=== PATIENT | female | born 1945 | race Caucasian/White ===

== ENCOUNTER → 2017-01-15 | Outpatient (CLI) | payer MEDICARE ==
[~2017-01-15] MED LIST: /TIOT18INH INH; ADVAIR; ALBUTEROL INH; ASPI325T OR; COLA100C2 OR; EFFE150C OR; FLECTOR1.3 TOP; FLEXERIL OR; LISI20TA5 OR; PERC5TAB8 OR; amrix; nucynta OR
--- NOTE | 2017-01-15 16:48 | REP ---
CT CHEST WITHOUT CONTRAST: REASON FOR EXAM: History of lung cancer. COMPARISON EXAM: Multiple, all of which have been reviewed and the latest of which is dated 12/27/2015. The exam was performed without intravenous contrast which decreases the sensitivity of the exam. There is no significant change in the appearance of the mediastinum of pulmonary yg. There are no pleural or pericardiac effusions. There is no significant change in the appearance of the imaged upper abdomen or imaged osseous structures. There are chronic rib changes status quo. Evaluation of the lung jacobs again show lung field hyperexpansion with parenchymal bulla and pleural blebs status quo. Curvilinear and asymmetric density again seen scattered throughout the lung jacobs with right hemithoracic predominance consistent with post-operative and post radiation change. In the posterior basal segment of the left lower lobe there is a new 6 mm size nodule. Just inferior to this there is a new smaller 4 mm sized nodule. Also in the left lower lobe superior to the aforementioned there is a new 3 mm sized nodule. In the anterobasal segment of the left lower lobe there is a new 2 mm sized nodule. In the lingula there are 3 new nodules, two measuring 4 mm and one smaller. In the right lower lobe there are multiple new pleural based nodules, the largest of which measures 4 mm. IMPRESSION:1. Multiple new pulmonary nodules as described above. According to the revised Fleischner's Society criteria, these nodules represent category 3 lesions and a 6 month followup is recommended. 2. Chronic parenchymal changes with postradiation and postoperative change along with chronic emphysematous changes. 3. Other findings as described above. Signed by Adriano Navarro DO 01/16/2017 04:11 P
== END ==
LOC: M RAD 14:46
PROVIDERS: ATTEND Internal Medicine Hematology & Oncology
DX: C34.90 Malignant neoplasm of unspecified part of unspecified bronchus or lung (principal)

== ENCOUNTER → 2017-08-05 | Outpatient (CLI) | payer MEDICARE ==
--- NOTE | 2017-08-05 12:26 | REP ---
CT of the chest without IV contrast: Comparisons are 01/15/2017 and 12/27/2015. On 01/15/2017 there was a 6 mm nodule in the left lower lobe, pleural-based. This measures 5 mm today on image [id number]. On the comparison study. There is a left lower lobe 4 mm nodule. This nodule again measures 4 mm today and is unchanged. There are multiple other small left lung nodules, all 3 mm in size or less also all unchanged. I note that the the patient has 11 paired ribs. There is a barely visible hypoplastic right 12th rib. There is no left 12th rib. There is an old healed fracture of the posterior arch of the left eighth rib. There is grade 4 compression deformity of the T7 vertebral body without retropulsed fragments. This is unchanged. There are no acute infiltrates or effusions. There is no mediastinal or axillary adenopathy. The study is insensitive for hilar adenopathy in the absence of IV contrast. The unenhanced thoracic aorta is unremarkable. Cardiac size is normal. There is no pericardial effusion. In the visualized upper abdomen there is no adrenal mass. Impression: Multiple small left lung nodules without interval change. Grade 4 compression deformity of the T7 vertebral body, unchanged. Old healed fracture of the T8 vertebra posteriorly, unchanged. There are 11 paired ribs. There is a markedly hypoplastic right 12th rib. No visible left 12th rib. Signed by Jan López MD 08/05/2017 12:18 P
== END ==
LOC: M RAD 10:49
PROVIDERS: ATTEND Internal Medicine Hematology & Oncology
DX: C34.90 Malignant neoplasm of unspecified part of unspecified bronchus or lung (principal)

== ENCOUNTER → 2018-02-10 | Outpatient (CLI) | payer MEDICARE | LOC: M RAD 12:19 | DX: C34.91 Malignant neoplasm of unspecified part of right bronchus or lung (principal) | CPT/HCPCS: 71250 ==

== ENCOUNTER → 2019-02-04 | Outpatient (CLI) | payer MEDICARE ==
[~2019-02-04] MED LIST changes: -/TIOT18INH INH; +SPIR1CAP INH
--- NOTE | 2019-02-04 14:10 | REP ---
REASON: Adenocarcinoma of the lung. All priors were reviewed, the latest of which is dated 02/10/2018. Lack of intravenous contrast decreases the sensitivity of the exam. Postop change is seen in the right hilum status quo. No mediastinal or hilar adenopathy is has developed. There are no pleural or pericardial effusions. There is no change in the appearance of the imaged upper abdomen. Evaluation of the imaged osseous structures show multiple chronic rib changes, however, since the last examination, multiple age-indeterminate by seemingly subacute or old left-sided rib fractures have developed. Evaluation of the lung jacobs show scattered subcentimeter-sized nodular densities throughout the left lung status quo. Chronic change is seen throughout the lung jacobs with lung field hyperexpansion and bullous emphysematous change status quo. No new abnormal nodules, masses, or opacities have developed. IMPRESSION: 1. Left-sided rib fractures as described above. 2. No new lung findings with chronic changes and postoperative changes as described above. Electronically Signed by Adriano Navarro DO 02/04/2019 04:14 P
== END ==
LOC: M RAD 11:58
PROVIDERS: ATTEND Internal Medicine Hematology & Oncology
DX: C34.91 Malignant neoplasm of unspecified part of right bronchus or lung (principal)

== ENCOUNTER 2019-03-04 07:42 | Day surgery (SDC) | payer MEDICARE ==
[~2019-03-04] VITALS: Ht 149.9 cm; Wt 49.9 kg
[~2019-03-04 07:42] MED LIST changes: +ALBU8.5H; +ANOR1AER INH; +ARNU1INH INH; +ASPI81TA26 PO; +BSS with VANC/TOB/EPI for EYE CASES IR ONE; +COLA100C5 PO; +CYCLOPENTOLATE 2% OPHTH SOLN 2ML BTL OS ONE; +FELO10TA PO; +GABA-1171 PO; +HEALON DUET PRO(HEALON 10MG/ML 0.55ML & HEALON ENDOCOAT 30MG/ML 0.85ML) As Ordered ONE; +HYDR-3911 PO; +IPRA0.00; +LIDOCAINE 1% SDV 5 ML VIAL As Ordered ONE; +LIDOCAINE 3.5 % 1ML OPHTH TOPICAL GEL OU ONE; +MELA3TAB41 PO; +MIDAZOLAM INJ 2 MG/2 ML VIAL (J2250) As Ordered ONE; +MOXIFLOXACIN IN BSS 0.25MG/0.25ML INTRACAMERAL INJ (OR EYE ONLY)(J2280) As Ordered ONE; +NUCY75TA11 PO; +OFLOXACIN 0.3 % (OCUFLOX) OPTH SOL 5ML OS ONE; +PHENYLEPHRINE 2.5% OPHTH SOL 2ML OS ONE; +PHENYLEPHRINE HCL 10 % OPHTH. SOL 5ML OS PRN; +POVIDONE-IODINE 5% OPHTH PREP SOL 30ML As Ordered ONE; +PRED10PA2 PO; +RANI150T14 PO; +SOMA350T PO; +TRIAMCINOLONE PRES FR 40 MG/ML 1ML(TRIESENCE)(OR EYE ONLY)(J3300 PER 1MG) As Ordered ONE; +TROPICAMIDE 1% OPHTH SOLN 2ML OS ONE; +VITA500045 PO; +fentaNYL 100 MCG/2 ML INJECTION (J3010) As Ordered ONE
[2019-03-04] MEDS ORDERED: ONDANSETRON 4MG/2ML VIAL (J2405) IV PRN (10:30)
[2019-03-04] MEDS ORDERED: ACETAMINOPHEN TAB 650MG DOSE (2X325MG) PO PRN (10:30)
[2019-03-04 10:40] VITALS: BP 130/75
== END 2019-03-04 10:48 | disposition home or self-care (01) ==
LOC: M SDC 07:42
PROVIDERS: ATTEND Ophthalmology
DX: H25.9 Unspecified age-related cataract (principal); I10 Essential (primary) hypertension; E03.9 Hypothyroidism, unspecified; K21.9 Gastro-esophageal reflux disease without esophagitis; K44.9 Diaphragmatic hernia without obstruction or gangrene; J44.9 Chronic obstructive pulmonary disease, unspecified; Z79.899 Other long term (current) drug therapy; Z79.51 Long term (current) use of inhaled steroids; Z79.52 Long term (current) use of systemic steroids; Z79.82 Long term (current) use of aspirin; G47.30 Sleep apnea, unspecified; Z92.21 Personal history of antineoplastic chemotherapy; F32.9 Major depressive disorder, single episode, unspecified; F41.9 Anxiety disorder, unspecified; Z88.2 Allergy status to sulfonamides; Z91.041 Radiographic dye allergy status
CPT/HCPCS: 66984; 67515; 92015; J2250; J2280; J3010; J3300; V2788

== ENCOUNTER → 2019-04-29 | Outpatient (CLI) | payer MEDICARE ==
[~2019-04-29] MED LIST changes: -BSS with VANC/TOB/EPI for EYE CASES IR ONE; -CYCLOPENTOLATE 2% OPHTH SOLN 2ML BTL OS ONE; -HEALON DUET PRO(HEALON 10MG/ML 0.55ML & HEALON ENDOCOAT 30MG/ML 0.85ML) As Ordered ONE; -LIDOCAINE 1% SDV 5 ML VIAL As Ordered ONE; -LIDOCAINE 3.5 % 1ML OPHTH TOPICAL GEL OU ONE; -MIDAZOLAM INJ 2 MG/2 ML VIAL (J2250) As Ordered ONE; -MOXIFLOXACIN IN BSS 0.25MG/0.25ML INTRACAMERAL INJ (OR EYE ONLY)(J2280) As Ordered ONE; -OFLOXACIN 0.3 % (OCUFLOX) OPTH SOL 5ML OS ONE; -PHENYLEPHRINE 2.5% OPHTH SOL 2ML OS ONE; -PHENYLEPHRINE HCL 10 % OPHTH. SOL 5ML OS PRN; -POVIDONE-IODINE 5% OPHTH PREP SOL 30ML As Ordered ONE; -TRIAMCINOLONE PRES FR 40 MG/ML 1ML(TRIESENCE)(OR EYE ONLY)(J3300 PER 1MG) As Ordered ONE; -TROPICAMIDE 1% OPHTH SOLN 2ML OS ONE; -fentaNYL 100 MCG/2 ML INJECTION (J3010) As Ordered ONE
--- NOTE | 2019-04-29 16:07 | REP ---
HISTORY: Pain and swelling. History of a mass. COMPARISON: None. There are old healed rib fractures on the left. There is moderate degenerative changes seen involving the acromioclavicular joint. The glenohumeral relationship is within normal limits. IMPRESSION: Chronic changes as described above. If a soft tissue mass is of clinical concern, then an MRI would be in order. Electronically Signed by Adriano Navarro DO 04/29/2019 04:22 P
== END ==
LOC: M RAD 13:33
PROVIDERS: ATTEND Surgery
DX: R22.2 Localized swelling, mass and lump, trunk (principal)

== ENCOUNTER → 2019-05-23 | Outpatient (CLI) | payer MEDICARE ==
[2019-05-23 13:26] LABS: CREATININE FOR GFR 1.13 MG/DL (0.55-1.30); GLOMERULAR FILTRATION RATE 50.5 (>39)
== END ==
LOC: M LAB 12:34
PROVIDERS: ATTEND Surgery
DX: R22.2 Localized swelling, mass and lump, trunk (principal)

== ENCOUNTER → 2019-05-27 | Outpatient (CLI) | payer MEDICARE ==
[~2019-05-27] MED LIST changes: +PROHANCE 279.3MG/ML 5ML VIAL (A9576) As Ordered ONE
--- NOTE | 2019-05-27 15:10 | REP ---
MRI LEFT CHEST WALL WITH AND WITHOUT CONTRAST: TECHNIQUE: Multiple sequences obtained at the site of the reported palpable abnormality at the posterior aspect of the left chest wall in the axial, coronal, and sagittal planes prior to and following the intravenous administration of 5 mL ProHance. The palpable area is marked on the skin. At the site of the reported palpable abnormality there are underlying rib fractures as seen on prior CT of the chest 02/04/2019. Two mildly displaced rib fractures are seen adjacent to one another at the site of the reported palpable abnormality, specifically the posterior left 6th rib and left 7th rib. At both of these fracture sites there is mild high signal edema along the margins of the fractures as well as a small band of fluid in the adjacent left chest wall. This indicates incomplete healing. No suspicious enhancing mass is seen in the chest wall soft tissues. Severe compression fracture is again noted of T7 unchanged since the prior CT scan. IMPRESSION: At the site of the reported palpable abnormality posterior left chest wall there are underlying rib fractures as seen on CT of the chest 02/04/2019. Two mildly displaced rib fractures are seen posteriorly, specifically, the left 6th and 7th ribs. Both of these fractures demonstrate edema at the margins of the fracture with a band of fluid in the immediately adjacent chest wall. Only a mild amount of fluid is present having a thickness of about 6 mm. There is no enhancing soft tissue mass in this region. Unreviewed
== END ==
LOC: M RAD 08:59
PROVIDERS: ATTEND Surgery
DX: R22.2 Localized swelling, mass and lump, trunk (principal); S22.42XA Multiple fractures of ribs, left side, initial encounter for closed fracture; X58.XXXA Exposure to other specified factors, initial encounter; Y92.9 Unspecified place or not applicable
CPT/HCPCS: 73222; A9576

== ENCOUNTER → 2020-01-27 | Outpatient (CLI) | payer MEDICARE ==
[~2020-01-27] MED LIST changes: -FELO10TA PO; +FELO10TA28 PO; -MELA3TAB41 PO; +MELA3TAB62 PO; -PROHANCE 279.3MG/ML 5ML VIAL (A9576) As Ordered ONE
--- NOTE | 2020-01-27 14:31 | REP ---
CT CHEST WITHOUT IV CONTRAST: CT chest performed without IV contrast and compared to a prior study of 02/04/2019. Sagittal and coronal reconstruction images are performed. Mediastinal and right paramediastinal fibrotic change and posterior pleural thickening is all stable. No new mass is visualized. A few scattered tiny calcified granulomas and other nodular opacities in the left lung are all stable. There are emphysematous and fibrotic changes diffusely bilaterally in the lungs. No axillary adenopathy is seen. No new mediastinal mass is seen. There are multiple metallic clips in the right hilar region. There are atherosclerotic calcifications of the thoracic aorta without aneurysm. The heart is not enlarged. There is no pleural or pericardial effusion. There are diffuse degenerative changes of the spine. There is a severe compression deformity again noted of a mid thoracic vertebral body, which is stable. There are old bilateral rib fractures. IMPRESSION: Stable fibrotic and postsurgical changes with no new mass and no change since the prior study of 02/04/2019. Electronically Signed by Jan Martin MD 01/27/2020 04:23 P
== END ==
LOC: M RAD 12:38
PROVIDERS: ATTEND Internal Medicine Hematology & Oncology
DX: Z85.118 Personal history of other malignant neoplasm of bronchus and lung (principal)

== ENCOUNTER → 2022-04-05 | Outpatient (CLI) | payer OTHER ==
[~2022-04-05] MED LIST changes: +MELA3TAB30 PO; -MELA3TAB62 PO
== END ==
LOC: M RAD 12:57
PROVIDERS: ATTEND Internal Medicine Hematology & Oncology
DX: C34.90 Malignant neoplasm of unspecified part of unspecified bronchus or lung (principal)

== ENCOUNTER 2023-05-11 20:58 | Inpatient (IN) | payer MEDICARE, OTHER ==
[~2023-05-11] VITALS: Ht 149.9 cm; Wt 53.9 kg
[2023-05-11 23:33] LABS: BASO # 0.1 10^3/uL (0.0-0.2); BASO % 0.5 % (0.0-1.0); EOS % 0.1 % (0.0-3.0); HEMATOCRIT 35.8 % (36.0-47.0); LYMPH # 0.4 10^3/uL (1.5-5.0); LYMPH % 3.3 % (24.0-44.0); MEAN CORPUSCULAR HEMOGLOBIN 28.4 pg (27.0-33.0); MEAN CORPUSCULAR HGB CONC 30.7 g/dl (32.0-36.5); MEAN CORPUSCULAR VOLUME 92.3 fl (80.0-96.0); MONO # 1.3 10^3/uL (0.0-0.8); MONO % 9.7 % (2.0-8.0); NEUTROPHILS # 11.3 10^3/uL (1.5-8.5); NEUTROPHILS % 85.6 % (36.0-66.0); PLATELET COUNT, AUTOMATED 278 10^3/uL (150-450); RED BLOOD COUNT 3.88 10^6/uL (4.00-5.40); WHITE BLOOD COUNT 13.2 10^3/uL (4.0-10.0)
[2023-05-11 23:57] LABS: CALCIUM LEVEL 8.6 MG/DL (8.3-10.6); CREATININE FOR GFR 1.14 MG/DL (0.55-1.30); GLOMERULAR FILTRATION RATE 49.5 (>39); POTASSIUM SERUM 4.2 MMOL/L (3.5-5.1)
[2023-05-12] VITALS (19 sets, daily range): BP systolic 94–112; BP diastolic 58–71; TEMP 96.6–99.9; O2SAT 85–99
[2023-05-12 00:04] LABS: RSV AMPLIFICATION NEGATIVE (NEGATIVE)
[2023-05-12] MEDS ORDERED: ACETAMINOPHEN 1000MG 100ML IV BAG IV ONE (00:50)
[2023-05-12] MEDS ORDERED: KETOROLAC 30 MG/ML 1ML VIAL IV ONE (01:00)
[2023-05-12] MEDS ORDERED: MORPHINE 4 MG/ML 1ML VIAL IV PRN (01:55)
[2023-05-12] MEDS ORDERED: ACETAMINOPHEN TAB 650MG DOSE (2X325MG) PO PRN (01:55)
[2023-05-12] MEDS: LR 1,000 ML IV SCH ×2 (02:09→16:05)
[2023-05-12] MEDS ORDERED: MED REC CURRENTLY UNOBTAINABLE XX SCH (02:25)
[2023-05-12] MEDS: IPRATROPIUM 0.5MG/ALBUTEROL 2.5MG INH SOL UD 3ML (DUONEB) NEB SCH ×5 (03:38→23:40)
[2023-05-12 06:50] LABS: INR 1.01; PROTHROMBIN TIME 13.5 SECONDS (12.5-14.5)
[2023-05-12 06:51] LABS: PARTIAL THROMBOPLASTIN TIME 33.7 SECONDS (24.8-34.2)
[2023-05-12] MEDS ORDERED: KETOROLAC 30 MG/ML 1ML VIAL IV SCH (08:00)
[2023-05-12 08:24] LABS: BASO # 0.1 10^3/uL (0.0-0.2); BASO % 0.6 % (0.0-1.0); EOS % 0.3 % (0.0-3.0); HEMATOCRIT 35.3 % (36.0-47.0); HEMOGLOBIN 10.8 g/dl (12.0-15.5); LYMPH # 0.7 10^3/uL (1.5-5.0); LYMPH % 6.8 % (24.0-44.0); MEAN CORPUSCULAR HEMOGLOBIN 28.1 pg (27.0-33.0); MEAN CORPUSCULAR HGB CONC 30.6 g/dl (32.0-36.5); MEAN CORPUSCULAR VOLUME 91.9 fl (80.0-96.0); MONO # 1.5 10^3/uL (0.0-0.8); MONO % 13.2 % (2.0-8.0); NEUTROPHILS # 8.6 10^3/uL (1.5-8.5); NEUTROPHILS % 78.7 % (36.0-66.0); PLATELET COUNT, AUTOMATED 268 10^3/uL (150-450); RED BLOOD COUNT 3.84 10^6/uL (4.00-5.40)
[2023-05-12 08:29] LABS: CALCIUM LEVEL 8.4 MG/DL (8.3-10.6); CREATININE FOR GFR 1.28 MG/DL (0.55-1.30); GLOMERULAR FILTRATION RATE 43.3 (>39); POTASSIUM SERUM 4.3 MMOL/L (3.5-5.1)
[2023-05-12] MEDS ORDERED: methylPREDNISolone 125MG 2ML VIAL IV ONE (08:30)
[2023-05-12] MEDS: MORPHINE 2 MG/ML 1ML VIAL IV PRN ×3 (08:51→21:32)
[2023-05-12] MEDS: AZITHROMYCIN 250MG TABLET PO SCH ×2 (08:51→13:24)
[2023-05-12] MEDS: amLODIPine 5 MG TAB PO SCH (09:00)
[2023-05-12] MEDS ORDERED: ZOLO100T PO (12:10)
[2023-05-12] MEDS ORDERED: LISI20TA33 PO (12:10)
[2023-05-12] MEDS ORDERED: SIMV20TA22 PO (12:10)
[2023-05-12] MEDS ORDERED: HYDR100T PO (12:10)
[2023-05-12] MEDS ORDERED: LEVO150T7 PO (12:10)
[2023-05-12] MEDS ORDERED: PANT40TA29 PO (12:10)
[2023-05-12] MEDS ORDERED: ERGO500029 PO (12:12)
[2023-05-12] MEDS ORDERED: HOME MED LIST COMPLETE! XX SCH (12:15)
[2023-05-12] MEDS: SERTRALINE 100 MG TAB PO SCH (13:24)
[2023-05-12] MEDS: LEVOTHYROXINE 150MCG TABLET (0.15MG) PO SCH (13:24)
[2023-05-12] MEDS: ASPIRIN 81MG ENTERIC TABLET PO SCH (13:25)
[2023-05-12] MEDS: PANTOPRAZOLE 40MG TAB (PROTONIX) PO SCH (13:25)
[2023-05-12] MEDS: PERCOCET 5MG/325MG TAB PO PRN (13:25)
[2023-05-12] MEDS: DOCUSATE SODIUM 100MG CAPSULE PO PRN (13:25)
[2023-05-12] MEDS: CALCIUM CARBONATE 500 MG CHEW U/D PO PRN (16:10)
[2023-05-12] MEDS: SYMBICORT 80/4.5MCG INHALER 6GM INH SCH (20:01)
[2023-05-12] MEDS: SIMVASTATIN 20 MG TAB PO SCH (21:31)
[2023-05-13] VITALS (13 sets, daily range): BP systolic 92–151; BP diastolic 56–83; TEMP 97.1–97.8; O2SAT 90–99
[2023-05-13] MEDS: MORPHINE 2 MG/ML 1ML VIAL IV PRN ×5 (01:30→21:44)
[2023-05-13] MEDS: IPRATROPIUM 0.5MG/ALBUTEROL 2.5MG INH SOL UD 3ML (DUONEB) NEB SCH ×4 (03:15→17:27)
[2023-05-13] MEDS: PERCOCET 5MG/325MG TAB PO PRN ×4 (03:51→23:55)
[2023-05-13 04:54] LABS: HEMATOCRIT 33.1 % (36.0-47.0); HEMOGLOBIN 10.1 g/dl (12.0-15.5); MEAN CORPUSCULAR HEMOGLOBIN 27.9 pg (27.0-33.0); MEAN CORPUSCULAR HGB CONC 30.5 g/dl (32.0-36.5); MEAN CORPUSCULAR VOLUME 91.4 fl (80.0-96.0); PLATELET COUNT, AUTOMATED 217 10^3/uL (150-450); RED BLOOD COUNT 3.62 10^6/uL (4.00-5.40); WHITE BLOOD COUNT 16.9 10^3/uL (4.0-10.0)
[2023-05-13] MEDS: LEVOTHYROXINE 150MCG TABLET (0.15MG) PO SCH (05:36)
[2023-05-13] MEDS: LR 1,000 ML IV SCH (06:48)
[2023-05-13 06:50] LABS: CREATININE FOR GFR 1.13 MG/DL (0.55-1.30); MAGNESIUM LEVEL 2.1 MG/DL (1.8-2.4); POTASSIUM SERUM 4.4 MMOL/L (3.5-5.1)
[2023-05-13] MEDS: TIOTROPIUM INHALER/CAPSULE (SPIRIVA) INH SCH (07:17)
[2023-05-13] MEDS: SYMBICORT 80/4.5MCG INHALER 6GM INH SCH (07:18)
[2023-05-13] MEDS: methylPREDNISolone 40MG 1ML VIAL IV SCH ×2 (08:57→20:14)
[2023-05-13] MEDS: SERTRALINE 100 MG TAB PO SCH (08:57)
[2023-05-13] MEDS: PANTOPRAZOLE 40MG TAB (PROTONIX) PO SCH (08:58)
[2023-05-13] MEDS: amLODIPine 5 MG TAB PO SCH (08:58)
[2023-05-13] MEDS: ASPIRIN 81MG ENTERIC TABLET PO SCH (08:59)
[2023-05-13] MEDS ORDERED: CEPACOL LOZENGE PO PRN (09:20)
[2023-05-13] MEDS: guaiFENesin ER 600 MG TAB PO SCH ×2 (09:38→20:14)
[2023-05-13] MEDS ORDERED: propofoL 200 MG/20 ML VIAL As Ordered ONE (11:03)
[2023-05-13] MEDS ORDERED: LIDOCAINE 2% 100MG/5ML SDV (FOR ANES.) As Ordered ONE (11:03)
[2023-05-13] MEDS ORDERED: fentaNYL 100 MCG/2 ML INJECTION As Ordered ONE (11:04)
[2023-05-13] MEDS ORDERED: MIDAZOLAM INJ 2MG/2ML VIAL As Ordered ONE (11:04)
[2023-05-13] MEDS: MAG SULF 1GM/100ML (MAG RUN) 1 GM in IV 1 EA IV SCH ×2 (13:42→15:30)
[2023-05-13] MEDS: BUDESONIDE 0.25 MG/2 ML INHALATION SUSPENSION INH SCH ×2 (13:51→19:24)
[2023-05-13] MEDS ORDERED: methylPREDNISolone 40MG 1ML VIAL IV ONE (16:05)
[2023-05-13] MEDS ORDERED: diphenhydrAMINE 50MG/ML VIAL IV STA (16:05)
[2023-05-13] MEDS ORDERED: AZITHROMYCIN INJ 500 MG, VIAL MATE ADAPTER 1 EACH in NS 250 ML IV SCH (17:00)
[2023-05-13 17:46] LABS: ABG BASE EXCESS -1.3 (-2.0-2.0); ABG HCO3 24.1 MMOL/L (22.0-26.0); ABG O2 SATURATION 98.9 % (95.0-99.0); ABG PARTIAL PRESSURE CO2 43.5 mmHg (35.0-45.0); ABG PARTIAL PRESSURE O2 147.5 mmHg (75.0-100.0); ABG STANDARD HCO3 23.4 MMOL/L. (22.0-26.0); ABG TOTAL CO2 25.5 MMOL/L (23.0-31.0); ABG pH (ARTERIAL) 7.362 UNITS (7.350-7.450)
[2023-05-13] MEDS ORDERED: ISOVUE-370 76% 100ML VIAL As Ordered ONE (17:52)
[2023-05-13] MEDS: FORMOTEROL FUMARATE 20 MCG/2 ML INHALATION SOLUTION (PERFOROMIST) INH SCH (19:23)
[2023-05-13] MEDS: SIMVASTATIN 20 MG TAB PO SCH (20:14)
[2023-05-13] MEDS: cefTRIAXone SOD 1 GM in D5W MINI-BAG PLUS 50 ML IV SCH (20:15)
[2023-05-13] MEDS ORDERED: ENOXAPARIN 30MG/0.3ML SYRINGE (J1650 PER 10MG) SC ONE (21:00)
[2023-05-14] VITALS (32 sets, daily range): BP systolic 92–150; BP diastolic 59–85; TEMP 96.7–97.7; O2SAT 88–100
[2023-05-14] MEDS: IPRATROPIUM 0.5MG/ALBUTEROL 2.5MG INH SOL UD 3ML (DUONEB) NEB SCH ×4 (01:06→19:06)
[2023-05-14] MEDS: MORPHINE 2 MG/ML 1ML VIAL IV PRN ×4 (01:51→20:51)
[2023-05-14] MEDS: NICOTINE 21MG/24HR 1 EA TRANSDERMAL TD PRN (03:30)
[2023-05-14] MEDS: PERCOCET 5MG/325MG TAB PO PRN ×3 (04:43→17:52)
[2023-05-14] MEDS: LEVOTHYROXINE 150MCG TABLET (0.15MG) PO SCH (06:30)
[2023-05-14] MEDS: BUDESONIDE 0.25 MG/2 ML INHALATION SUSPENSION INH SCH (07:49)
[2023-05-14] MEDS: FORMOTEROL FUMARATE 20 MCG/2 ML INHALATION SOLUTION (PERFOROMIST) INH SCH (07:49)
[2023-05-14] MEDS: TIOTROPIUM INHALER/CAPSULE (SPIRIVA) INH SCH (07:49)
[2023-05-14] MEDS ORDERED: ONDANSETRON 4MG 2ML VIAL As Ordered ONE (09:48)
[2023-05-14] MEDS ORDERED: propofoL 200 MG/20 ML VIAL As Ordered ONE (09:48)
[2023-05-14] MEDS ORDERED: LIDOCAINE 2% 100MG/5ML SDV (FOR ANES.) As Ordered ONE (09:48)
[2023-05-14] MEDS: guaiFENesin ER 600 MG TAB PO SCH ×3 (09:52→20:47)
[2023-05-14] MEDS: methylPREDNISolone 40MG 1ML VIAL IV SCH ×3 (09:52→20:47)
[2023-05-14] MEDS: AZITHROMYCIN 250MG TABLET PO SCH (09:52)
[2023-05-14] MEDS: ASPIRIN 81MG ENTERIC TABLET PO SCH ×2 (09:52→10:00)
[2023-05-14] MEDS: SERTRALINE 100 MG TAB PO SCH ×2 (09:52→10:00)
[2023-05-14] MEDS: amLODIPine 5 MG TAB PO SCH ×2 (09:53→10:00)
[2023-05-14] MEDS: PANTOPRAZOLE 40MG TAB (PROTONIX) PO SCH ×2 (09:53→10:00)
[2023-05-14 09:59] LABS: BASO % 0.1 % (0.0-1.0); HEMATOCRIT 31.9 % (36.0-47.0); HEMOGLOBIN 9.7 g/dl (12.0-15.5); LYMPH # 0.2 10^3/uL (1.5-5.0); LYMPH % 1.4 % (24.0-44.0); MEAN CORPUSCULAR HGB CONC 30.4 g/dl (32.0-36.5); MEAN CORPUSCULAR VOLUME 91.9 fl (80.0-96.0); NEUTROPHILS # 15.8 10^3/uL (1.5-8.5); NEUTROPHILS % 91.7 % (36.0-66.0); PLATELET COUNT, AUTOMATED 243 10^3/uL (150-450); RED BLOOD COUNT 3.47 10^6/uL (4.00-5.40); WHITE BLOOD COUNT 17.2 10^3/uL (4.0-10.0)
[2023-05-14 10:25] LABS: BLOOD UREA NITROGEN 28 MG/DL (9-23); CALCIUM LEVEL 8.5 MG/DL (8.3-10.6); CARBON DIOXIDE LEVEL 27 MMOL/L (20-31); CHLORIDE LEVEL 104 MMOL/L (98-107); CREATININE FOR GFR 0.87 MG/DL (0.55-1.30); GLOMERULAR FILTRATION RATE > 60.0 (>39); GLUCOSE, FASTING 101 MG/DL (74-106); POTASSIUM SERUM 4.6 MMOL/L (3.5-5.1); SODIUM LEVEL 140 MMOL/L (136-145)
[2023-05-14] MEDS ORDERED: SUGAMMADEX SODIUM 500 MG/5 ML VIAL (BRIDION) As Ordered ONE (10:39)
[2023-05-14] MEDS ORDERED: ROCURONIUM BROMIDE 50MG/5ML VIAL As Ordered ONE (10:39)
[2023-05-14] MEDS ORDERED: fentaNYL 100 MCG/2 ML INJECTION As Ordered ONE (10:40)
[2023-05-14] MEDS ORDERED: methylPREDNISolone 40MG 1ML VIAL As Ordered ONE (11:20)
[2023-05-14] MEDS ORDERED: ceFAZolin 2 GM/D5W 50 ML IV BAG As Ordered ONE (11:27)
[2023-05-14] MEDS ORDERED: ACETAMINOPHEN 1000MG 100ML IV BAG As Ordered ONE (11:48)
[2023-05-14] MEDS: LEVALBUTEROL 1.25MG 0.5ML CONCENTRATE NEB INH PRN (13:20)
[2023-05-14] MEDS: cefTRIAXone SOD 1 GM in D5W MINI-BAG PLUS 50 ML IV SCH (17:50)
[2023-05-14] MEDS: IPRATROPIUM HFA INHALER 12.9 GRAMS (ATROVENT HFA) INH SCH (19:07)
[2023-05-14] MEDS: ADVAIR HFA 115/21MCG INHALER INH SCH (19:07)
[2023-05-14] MEDS: SIMVASTATIN 20 MG TAB PO SCH (20:46)
[2023-05-15] VITALS (26 sets, daily range): BP systolic 98–142; BP diastolic 54–96; TEMP 96.7–98.4; O2SAT 85–98
[2023-05-15] MEDS: IPRATROPIUM 0.5MG/ALBUTEROL 2.5MG INH SOL UD 3ML (DUONEB) NEB SCH ×5 (01:10→20:16)
[2023-05-15] MEDS: MORPHINE 2 MG/ML 1ML VIAL IV PRN ×4 (02:06→18:34)
[2023-05-15] MEDS: carisoprodoL 350 MG TAB PO PRN ×2 (03:25→20:37)
[2023-05-15] MEDS: CALCIUM CARBONATE 500 MG CHEW U/D PO PRN ×4 (03:25→21:46)
[2023-05-15] MEDS: NICOTINE 21MG/24HR 1 EA TRANSDERMAL TD PRN (03:32)
[2023-05-15] MEDS: PERCOCET 5MG/325MG TAB PO PRN ×4 (04:08→20:39)
[2023-05-15 05:42] LABS: BASO % 0.1 % (0.0-1.0); HEMATOCRIT 28.5 % (36.0-47.0); HEMOGLOBIN 8.7 g/dl (12.0-15.5); LYMPH # 0.2 10^3/uL (1.5-5.0); MEAN CORPUSCULAR HEMOGLOBIN 28.2 pg (27.0-33.0); MEAN CORPUSCULAR HGB CONC 30.5 g/dl (32.0-36.5); MEAN CORPUSCULAR VOLUME 92.2 fl (80.0-96.0); MONO # 0.7 10^3/uL (0.0-0.8); MONO % 7.1 % (2.0-8.0); NEUTROPHILS # 9.2 10^3/uL (1.5-8.5); NEUTROPHILS % 90.2 % (36.0-66.0); PLATELET COUNT, AUTOMATED 234 10^3/uL (150-450); RED BLOOD COUNT 3.09 10^6/uL (4.00-5.40); WHITE BLOOD COUNT 10.2 10^3/uL (4.0-10.0)
[2023-05-15 06:07] LABS: BLOOD UREA NITROGEN 30 MG/DL (9-23); CALCIUM LEVEL 8.1 MG/DL (8.3-10.6); CARBON DIOXIDE LEVEL 28 MMOL/L (20-31); CHLORIDE LEVEL 106 MMOL/L (98-107); CREATININE FOR GFR 0.82 MG/DL (0.55-1.30); GLOMERULAR FILTRATION RATE > 60.0 (>39); GLUCOSE, FASTING 124 MG/DL (74-106); SODIUM LEVEL 142 MMOL/L (136-145)
[2023-05-15] MEDS: LEVOTHYROXINE 150MCG TABLET (0.15MG) PO SCH (06:26)
[2023-05-15] MEDS: IPRATROPIUM HFA INHALER 12.9 GRAMS (ATROVENT HFA) INH SCH ×2 (07:10→20:16)
[2023-05-15] MEDS: ADVAIR HFA 115/21MCG INHALER INH SCH ×2 (07:10→20:16)
[2023-05-15] MEDS: amLODIPine 5 MG TAB PO SCH (09:00)
[2023-05-15] MEDS: SERTRALINE 100 MG TAB PO SCH (09:43)
[2023-05-15] MEDS: guaiFENesin ER 600 MG TAB PO SCH ×2 (09:43→20:37)
[2023-05-15] MEDS: PANTOPRAZOLE 40MG TAB (PROTONIX) PO SCH (09:43)
[2023-05-15] MEDS: ASPIRIN 81MG ENTERIC TABLET PO SCH (09:43)
[2023-05-15] MEDS: ENOXAPARIN 40MG/0.4ML SYRINGE (J1650 PER 10MG) SC SCH (09:43)
[2023-05-15] MEDS: methylPREDNISolone 40MG 1ML VIAL IV SCH ×2 (09:47→20:37)
[2023-05-15] MEDS ORDERED: BISACODYL 10MG SUPP PR ONE (10:50)
[2023-05-15] MEDS: MIRALAX *UNIT DOSE* 17GM PACKET PO SCH (11:11)
[2023-05-15 17:07] LABS: MYCOPLASMA PNEUMONIAE IgG <100 U/mL (0-99); MYCOPLASMA PNEUMONIAE IgM <770 U/mL (0-769)
[2023-05-15] MEDS: cefTRIAXone SOD 1 GM in D5W MINI-BAG PLUS 50 ML IV SCH (18:34)
[2023-05-15] MEDS: DOCUSATE SODIUM 100MG CAPSULE PO PRN (20:37)
[2023-05-15] MEDS: SIMVASTATIN 20 MG TAB PO SCH (20:37)
[2023-05-15] MEDS: LEVALBUTEROL 1.25MG 0.5ML CONCENTRATE NEB INH PRN (20:50)
[2023-05-15] MEDS: ONDANSETRON 4MG 2ML VIAL IV PRN (21:46)
[2023-05-16] MEDS: MORPHINE 2 MG/ML 1ML VIAL IV PRN (01:34)
[2023-05-16] MEDS: SUCRALFATE SUSP 1GM/10ML UD PO SCH ×4 (02:17→17:55)
[2023-05-16] MEDS: PERCOCET 5MG/325MG TAB PO PRN ×2 (02:17→19:11)
[2023-05-16] MEDS: LEVALBUTEROL 1.25MG 0.5ML CONCENTRATE NEB INH SCH ×4 (02:25→20:14)
[2023-05-16 04:00] VITALS: BP 142/91; TEMP 98.1; O2SAT 96
[2023-05-16] MEDS: TAMSULOSIN 0.4 MG CAP PO SCH (04:57)
[2023-05-16] MEDS: LEVOTHYROXINE 150MCG TABLET (0.15MG) PO SCH (04:57)
[2023-05-16] MEDS: CALCIUM CARBONATE 500 MG CHEW U/D PO PRN ×2 (05:03→13:09)
[2023-05-16] MEDS: ONDANSETRON 4MG 2ML VIAL IV PRN ×3 (06:10→22:42)
[2023-05-16 06:29] LABS: HEMATOCRIT 33.4 % (36.0-47.0); HEMOGLOBIN 10.1 g/dl (12.0-15.5); MEAN CORPUSCULAR HEMOGLOBIN 27.7 pg (27.0-33.0); MEAN CORPUSCULAR HGB CONC 30.2 g/dl (32.0-36.5); MEAN CORPUSCULAR VOLUME 91.8 fl (80.0-96.0); RED BLOOD COUNT 3.64 10^6/uL (4.00-5.40)
[2023-05-16 06:30] LABS: LYMPH # 0.3 10^3/uL (1.5-5.0); MONO # 1.1 10^3/uL (0.0-0.8); MONO % 11.4 % (2.0-8.0); NEUTROPHILS # 8.5 10^3/uL (1.5-8.5); PLATELET COUNT, AUTOMATED 286 10^3/uL (150-450)
[2023-05-16 06:40] LABS: BLOOD UREA NITROGEN 39 MG/DL (9-23); CALCIUM LEVEL 9.3 MG/DL (8.3-10.6); CARBON DIOXIDE LEVEL 30 MMOL/L (20-31); CHLORIDE LEVEL 102 MMOL/L (98-107); GLOMERULAR FILTRATION RATE > 60.0 (>39); GLUCOSE, FASTING 112 MG/DL (74-106); POTASSIUM SERUM 5.4 MMOL/L (3.5-5.1); SODIUM LEVEL 141 MMOL/L (136-145)
[2023-05-16] MEDS: IPRATROPIUM HFA INHALER 12.9 GRAMS (ATROVENT HFA) INH SCH ×2 (07:16→20:14)
[2023-05-16] MEDS: ADVAIR HFA 115/21MCG INHALER INH SCH ×2 (07:17→20:14)
[2023-05-16] MEDS: MIRALAX *UNIT DOSE* 17GM PACKET PO SCH ×2 (09:00→09:18)
[2023-05-16] MEDS: ASPIRIN 81MG ENTERIC TABLET PO SCH (09:16)
[2023-05-16] MEDS: amLODIPine 5 MG TAB PO SCH (09:17)
[2023-05-16] MEDS: guaiFENesin ER 600 MG TAB PO SCH (09:18)
[2023-05-16] MEDS: SERTRALINE 100 MG TAB PO SCH (09:18)
[2023-05-16] MEDS: PANTOPRAZOLE 40MG TAB (PROTONIX) PO SCH (09:18)
[2023-05-16] MEDS: methylPREDNISolone 40MG 1ML VIAL IV SCH (09:43)
[2023-05-16] MEDS: ENOXAPARIN 40MG/0.4ML SYRINGE (J1650 PER 10MG) SC SCH (09:44)
[2023-05-16 10:00] VITALS: BP 118/69; TEMP 97.9; O2SAT 92
[2023-05-16] MEDS ORDERED: PATIROMER SORBITEX CALCIUM 8.4 GM POWDER PACKET (VELTASSA) PO ONE (12:00)
[2023-05-16] MEDS: DOCUSATE SODIUM 100MG CAPSULE PO SCH (13:09)
[2023-05-16] MEDS: NICOTINE 21MG/24HR 1 EA TRANSDERMAL TD PRN (13:10)
[2023-05-16] MEDS: METOPROLOL TART 25 MG TABLET PO SCH (13:10)
[2023-05-16 14:00] VITALS: BP 132/80; TEMP 97.3; O2SAT 88
[2023-05-16 16:00] VITALS: O2SAT 95
[2023-05-16] MEDS: cefTRIAXone SOD 1 GM in D5W MINI-BAG PLUS 50 ML IV SCH (17:56)
[2023-05-16 18:00] VITALS: BP 130/85; TEMP 98.2; O2SAT 95
[2023-05-16 21:23] VITALS: BP 130/85; TEMP 98.4; O2SAT 93
[2023-05-17] VITALS (21 sets, daily range): BP systolic 103–170; BP diastolic 71–99; TEMP 97.7–98.6; O2SAT 4–97
[2023-05-17] MEDS: MIRALAX *UNIT DOSE* 17GM PACKET PO SCH ×2 (00:12→10:15)
[2023-05-17] MEDS: DOCUSATE SODIUM 100MG CAPSULE PO SCH ×2 (00:12→10:13)
[2023-05-17] MEDS: METOPROLOL TART 25 MG TABLET PO SCH ×3 (00:12→21:12)
[2023-05-17] MEDS: guaiFENesin ER 600 MG TAB PO SCH ×3 (00:12→21:07)
[2023-05-17] MEDS: SIMVASTATIN 20 MG TAB PO SCH ×2 (00:12→21:07)
[2023-05-17] MEDS: SUCRALFATE SUSP 1GM/10ML UD PO SCH ×3 (00:12→12:06)
[2023-05-17] MEDS: LR 1,000 ML IV SCH ×2 (01:31→13:30)
[2023-05-17] MEDS: MORPHINE 2 MG/ML 1ML VIAL IV PRN ×2 (01:32→18:31)
[2023-05-17] MEDS: LEVALBUTEROL 1.25MG 0.5ML CONCENTRATE NEB INH SCH ×4 (02:02→19:13)
[2023-05-17] MEDS: LEVOTHYROXINE 150MCG TABLET (0.15MG) PO SCH ×2 (05:18→12:07)
[2023-05-17 06:47] LABS: BASO % 0.1 % (0.0-1.0); EOS # 0.1 10^3/uL (0.0-0.5); EOS % 0.5 % (0.0-3.0); HEMATOCRIT 29.6 % (36.0-47.0); LYMPH # 0.7 10^3/uL (1.5-5.0); LYMPH % 6.7 % (24.0-44.0); MEAN CORPUSCULAR HGB CONC 30.4 g/dl (32.0-36.5); MEAN CORPUSCULAR VOLUME 91.9 fl (80.0-96.0); MONO % 15.3 % (2.0-8.0); NEUTROPHILS # 7.8 10^3/uL (1.5-8.5); NEUTROPHILS % 77.1 % (36.0-66.0); PLATELET COUNT, AUTOMATED 292 10^3/uL (150-450); RED BLOOD COUNT 3.22 10^6/uL (4.00-5.40); WHITE BLOOD COUNT 10.2 10^3/uL (4.0-10.0)
[2023-05-17 06:58] LABS: CALCIUM LEVEL 9.6 MG/DL (8.3-10.6); CREATININE FOR GFR 0.99 MG/DL (0.55-1.30); GLOMERULAR FILTRATION RATE 58.2 (>39); POTASSIUM SERUM 4.8 MMOL/L (3.5-5.1)
[2023-05-17 07:14] LABS: MONO # 1.6 10^3/uL (0.0-0.8)
[2023-05-17] MEDS: ADVAIR HFA 115/21MCG INHALER INH SCH ×2 (07:15→19:13)
[2023-05-17] MEDS: IPRATROPIUM HFA INHALER 12.9 GRAMS (ATROVENT HFA) INH SCH ×2 (07:16→19:13)
[2023-05-17] MEDS ORDERED: ISOVUE-370 76% 100ML VIAL As Ordered ONE (08:44)
[2023-05-17] MEDS ORDERED: diphenhydrAMINE 50MG/ML VIAL IV ONE (09:00)
[2023-05-17] MEDS ORDERED: methylPREDNISolone 125MG 2ML VIAL IV ONE (09:00)
[2023-05-17] MEDS: ENOXAPARIN 40MG/0.4ML SYRINGE (J1650 PER 10MG) SC SCH (10:13)
[2023-05-17] MEDS: PANTOPRAZOLE 40MG TAB (PROTONIX) PO SCH (10:13)
[2023-05-17] MEDS: ASPIRIN 81MG ENTERIC TABLET PO SCH (10:14)
[2023-05-17] MEDS: TAMSULOSIN 0.4 MG CAP PO SCH (10:14)
[2023-05-17] MEDS: amLODIPine 5 MG TAB PO SCH (10:14)
[2023-05-17] MEDS: predniSONE 20 MG TAB PO SCH (10:15)
[2023-05-17] MEDS: SERTRALINE 100 MG TAB PO SCH (10:16)
[2023-05-17] MEDS: PERCOCET 5MG/325MG TAB PO PRN ×2 (10:23→23:22)
[2023-05-17] MEDS: NICOTINE 21MG/24HR 1 EA TRANSDERMAL TD PRN (13:57)
[2023-05-17] MEDS ORDERED: FLEET ENEMA PR ONE (15:10)
[2023-05-17] MEDS: METOCLOPRAMIDE INJ 10MG/2ML VIAL IV SCH (18:37)
[2023-05-17] MEDS: cefTRIAXone SOD 1 GM in D5W MINI-BAG PLUS 50 ML IV SCH (18:37)
[2023-05-18] VITALS (14 sets, daily range): BP systolic 117–166; BP diastolic 71–110; TEMP 97.2–98.6; O2SAT 93–100
[2023-05-18] MEDS: METOCLOPRAMIDE INJ 10MG/2ML VIAL IV SCH ×4 (01:58→23:57)
[2023-05-18] MEDS: LR 1,000 ML IV SCH ×2 (01:58→09:17)
[2023-05-18] MEDS: MORPHINE 2 MG/ML 1ML VIAL IV PRN ×3 (01:59→15:55)
[2023-05-18] MEDS: LEVALBUTEROL 1.25MG 0.5ML CONCENTRATE NEB INH SCH ×4 (02:53→19:13)
[2023-05-18 06:20] LABS: EOS # 0.1 10^3/uL (0.0-0.5); EOS % 0.6 % (0.0-3.0); HEMATOCRIT 27.6 % (36.0-47.0); HEMOGLOBIN 8.2 g/dl (12.0-15.5); LYMPH # 0.5 10^3/uL (1.5-5.0); LYMPH % 3.8 % (24.0-44.0); MEAN CORPUSCULAR HEMOGLOBIN 27.5 pg (27.0-33.0); MEAN CORPUSCULAR HGB CONC 29.7 g/dl (32.0-36.5); MEAN CORPUSCULAR VOLUME 92.6 fl (80.0-96.0); MONO # 1.2 10^3/uL (0.0-0.8); MONO % 9.3 % (2.0-8.0); NEUTROPHILS % 85.8 % (36.0-66.0); PLATELET COUNT, AUTOMATED 257 10^3/uL (150-450); RED BLOOD COUNT 2.98 10^6/uL (4.00-5.40); WHITE BLOOD COUNT 12.9 10^3/uL (4.0-10.0)
[2023-05-18 06:46] LABS: BLOOD UREA NITROGEN 36 MG/DL (9-23); CALCIUM LEVEL 8.3 MG/DL (8.3-10.6); CARBON DIOXIDE LEVEL 35 MMOL/L (20-31); CHLORIDE LEVEL 101 MMOL/L (98-107); CREATININE FOR GFR 0.79 MG/DL (0.55-1.30); GLOMERULAR FILTRATION RATE > 60.0 (>39); GLUCOSE, FASTING 79 MG/DL (74-106); POTASSIUM SERUM 4.4 MMOL/L (3.5-5.1); SODIUM LEVEL 144 MMOL/L (136-145)
[2023-05-18] MEDS: IPRATROPIUM HFA INHALER 12.9 GRAMS (ATROVENT HFA) INH SCH ×2 (07:18→19:13)
[2023-05-18] MEDS: ADVAIR HFA 115/21MCG INHALER INH SCH ×2 (07:18→19:13)
[2023-05-18] MEDS: PERCOCET 5MG/325MG TAB PO PRN ×2 (09:11→20:50)
[2023-05-18] MEDS: predniSONE 20 MG TAB PO SCH (09:12)
[2023-05-18] MEDS: amLODIPine 5 MG TAB PO SCH (09:12)
[2023-05-18] MEDS: ASPIRIN 81MG ENTERIC TABLET PO SCH (09:12)
[2023-05-18] MEDS: METOPROLOL TART 25 MG TABLET PO SCH ×2 (09:13→20:48)
[2023-05-18] MEDS: guaiFENesin ER 600 MG TAB PO SCH ×2 (09:13→20:48)
[2023-05-18] MEDS: SERTRALINE 100 MG TAB PO SCH (09:13)
[2023-05-18] MEDS: PANTOPRAZOLE 40MG VIAL IV SCH (09:13)
[2023-05-18] MEDS: ENOXAPARIN 40MG/0.4ML SYRINGE (J1650 PER 10MG) SC SCH (09:13)
[2023-05-18] MEDS: ACETAMINOPHEN TAB 650MG DOSE (2X325MG) PO SCH ×3 (10:55→23:56)
[2023-05-18 14:16] LABS: HEMATOCRIT 24.9 % (36.0-47.0); HEMOGLOBIN 7.5 g/dl (12.0-15.5)
[2023-05-18] MEDS: CALCIUM CARBONATE 500 MG CHEW U/D PO PRN (15:54)
[2023-05-18] MEDS ORDERED: TRANEXAMIC ACID INJection 1,000 MG in D5W 100 ML IV ONE (18:05)
[2023-05-18 18:33] LABS: HEMATOCRIT 24.2 % (36.0-47.0); HEMOGLOBIN 7.3 g/dl (12.0-15.5)
[2023-05-18] MEDS: SIMVASTATIN 20 MG TAB PO SCH (20:47)
[2023-05-19] VITALS (19 sets, daily range): BP systolic 121–148; BP diastolic 74–89; TEMP 97.3–98.6; O2SAT 90–100
[2023-05-19] MEDS: LR 1,000 ML IV SCH ×2 (00:32→17:37)
[2023-05-19 00:49] LABS: HEMATOCRIT 22.8 % (36.0-47.0); HEMOGLOBIN 7.1 g/dl (12.0-15.5)
[2023-05-19] MEDS: LEVALBUTEROL 1.25MG 0.5ML CONCENTRATE NEB INH SCH ×2 (01:00→07:17)
[2023-05-19] MEDS: CALCIUM CARBONATE 500 MG CHEW U/D PO PRN ×2 (03:47→09:47)
[2023-05-19 05:52] LABS: BASO % 0.1 % (0.0-1.0); EOS # 0.3 10^3/uL (0.0-0.5); EOS % 2.6 % (0.0-3.0); HEMATOCRIT 22.4 % (36.0-47.0); LYMPH # 0.6 10^3/uL (1.5-5.0); LYMPH % 4.8 % (24.0-44.0); MEAN CORPUSCULAR HEMOGLOBIN 28.3 pg (27.0-33.0); MEAN CORPUSCULAR HGB CONC 30.8 g/dl (32.0-36.5); MEAN CORPUSCULAR VOLUME 91.8 fl (80.0-96.0); MONO # 1.1 10^3/uL (0.0-0.8); MONO % 8.6 % (2.0-8.0); NEUTROPHILS # 10.2 10^3/uL (1.5-8.5); NEUTROPHILS % 83.2 % (36.0-66.0); PLATELET COUNT, AUTOMATED 270 10^3/uL (150-450); RED BLOOD COUNT 2.44 10^6/uL (4.00-5.40); WHITE BLOOD COUNT 12.2 10^3/uL (4.0-10.0)
[2023-05-19] MEDS: LEVOTHYROXINE 150MCG TABLET (0.15MG) PO SCH (05:56)
[2023-05-19] MEDS: ACETAMINOPHEN TAB 650MG DOSE (2X325MG) PO SCH ×3 (05:57→17:26)
[2023-05-19 06:00] LABS: HEMOGLOBIN 6.9 g/dl (12.0-15.5)
[2023-05-19 06:15] LABS: BLOOD UREA NITROGEN 35 MG/DL (9-23); CALCIUM LEVEL 7.9 MG/DL (8.3-10.6); CARBON DIOXIDE LEVEL 33 MMOL/L (20-31); CHLORIDE LEVEL 102 MMOL/L (98-107); CREATININE FOR GFR 0.74 MG/DL (0.55-1.30); GLOMERULAR FILTRATION RATE > 60.0 (>39); GLUCOSE, FASTING 75 MG/DL (74-106); POTASSIUM SERUM 4.3 MMOL/L (3.5-5.1); SODIUM LEVEL 143 MMOL/L (136-145)
[2023-05-19] MEDS: ADVAIR HFA 115/21MCG INHALER INH SCH ×2 (07:17→20:46)
[2023-05-19] MEDS: IPRATROPIUM HFA INHALER 12.9 GRAMS (ATROVENT HFA) INH SCH (07:17)
[2023-05-19] MEDS: SERTRALINE 100 MG TAB PO SCH (09:45)
[2023-05-19] MEDS: METOCLOPRAMIDE INJ 10MG/2ML VIAL IV SCH ×2 (09:45→17:26)
[2023-05-19] MEDS: PANTOPRAZOLE 40MG VIAL IV SCH (09:45)
[2023-05-19] MEDS: amLODIPine 5 MG TAB PO SCH (09:46)
[2023-05-19] MEDS: guaiFENesin ER 600 MG TAB PO SCH ×2 (09:47→21:56)
[2023-05-19] MEDS: METOPROLOL TART 25 MG TABLET PO SCH ×2 (09:47→21:57)
[2023-05-19] MEDS: BISACODYL 10MG SUPP PR SCH ×2 (09:48→21:55)
[2023-05-19] MEDS: MORPHINE 2 MG/ML 1ML VIAL IV PRN ×2 (09:48→13:18)
[2023-05-19] MEDS ORDERED: LEVALBUTEROL 1.25MG 0.5ML CONCENTRATE NEB INH PRN (11:45)
[2023-05-19] MEDS ORDERED: IPRATROPIUM HFA INHALER 12.9 GRAMS (ATROVENT HFA) INH PRN (11:50)
[2023-05-19 13:19] LABS: HEMATOCRIT 34.6 % (36.0-47.0)
[2023-05-19] MEDS: **hydrALAZINE** 50 MG TAB PO SCH ×2 (13:19→21:56)
[2023-05-19 13:21] LABS: HEMOGLOBIN 11.3 g/dl (12.0-15.5)
[2023-05-19] MEDS: AMPICILLIN SOD/SULBACTAM SOD 3 GM in D5W MINI-BAG PLUS 100 ML IV SCH ×2 (13:22→17:26)
[2023-05-19] MEDS: DICLOFENAC EPOLAMINE 1.3% PATCH TOP SCH ×2 (13:22→21:54)
[2023-05-19 18:18] LABS: HEMATOCRIT 32.1 % (36.0-47.0); HEMOGLOBIN 10.5 g/dl (12.0-15.5)
[2023-05-19] MEDS: SIMVASTATIN 20 MG TAB PO SCH (21:56)
[2023-05-20] VITALS (15 sets, daily range): BP systolic 100–157; BP diastolic 63–96; TEMP 97.5–98.1; O2SAT 89–97
[2023-05-20 00:28] LABS: HEMATOCRIT 34.7 % (36.0-47.0); HEMOGLOBIN 11.2 g/dl (12.0-15.5)
[2023-05-20] MEDS: ACETAMINOPHEN TAB 650MG DOSE (2X325MG) PO SCH ×5 (00:50→23:20)
[2023-05-20] MEDS: METOCLOPRAMIDE INJ 10MG/2ML VIAL IV SCH ×4 (00:50→23:19)
[2023-05-20] MEDS: AMPICILLIN SOD/SULBACTAM SOD 3 GM in D5W MINI-BAG PLUS 100 ML IV SCH ×5 (00:52→23:19)
[2023-05-20] MEDS: PERCOCET 5MG/325MG TAB PO PRN ×2 (03:37→19:59)
[2023-05-20] MEDS: LEVOTHYROXINE 150MCG TABLET (0.15MG) PO SCH (05:25)
[2023-05-20 05:51] LABS: BASO # 0.1 10^3/uL (0.0-0.2); BASO % 0.4 % (0.0-1.0); EOS # 0.6 10^3/uL (0.0-0.5); HEMATOCRIT 35.8 % (36.0-47.0); HEMOGLOBIN 11.5 g/dl (12.0-15.5); LYMPH # 0.6 10^3/uL (1.5-5.0); LYMPH % 3.4 % (24.0-44.0); MEAN CORPUSCULAR HEMOGLOBIN 28.9 pg (27.0-33.0); MEAN CORPUSCULAR HGB CONC 32.1 g/dl (32.0-36.5); MEAN CORPUSCULAR VOLUME 89.9 fl (80.0-96.0); MONO # 1.5 10^3/uL (0.0-0.8); MONO % 9.6 % (2.0-8.0); NEUTROPHILS # 12.8 10^3/uL (1.5-8.5); NEUTROPHILS % 80.3 % (36.0-66.0); PLATELET COUNT, AUTOMATED 275 10^3/uL (150-450); RED BLOOD COUNT 3.98 10^6/uL (4.00-5.40)
[2023-05-20 06:12] LABS: BLOOD UREA NITROGEN 27 MG/DL (9-23); CALCIUM LEVEL 8.3 MG/DL (8.3-10.6); CARBON DIOXIDE LEVEL 33 MMOL/L (20-31); CHLORIDE LEVEL 102 MMOL/L (98-107); CREATININE FOR GFR 0.65 MG/DL (0.55-1.30); GLOMERULAR FILTRATION RATE > 60.0 (>39); GLUCOSE, FASTING 94 MG/DL (74-106); POTASSIUM SERUM 3.7 MMOL/L (3.5-5.1); SODIUM LEVEL 143 MMOL/L (136-145)
[2023-05-20] MEDS: ADVAIR HFA 115/21MCG INHALER INH SCH ×2 (07:14→20:59)
[2023-05-20] MEDS: DICLOFENAC EPOLAMINE 1.3% PATCH TOP SCH ×3 (08:06→19:58)
[2023-05-20] MEDS: PANTOPRAZOLE 40MG VIAL IV SCH (08:27)
[2023-05-20] MEDS: BISACODYL 10MG SUPP PR SCH ×2 (08:28→19:59)
[2023-05-20] MEDS: SERTRALINE 100 MG TAB PO SCH (08:28)
[2023-05-20] MEDS: METOPROLOL TART 25 MG TABLET PO SCH ×2 (08:29→19:54)
[2023-05-20] MEDS: **hydrALAZINE** 50 MG TAB PO SCH ×2 (08:29→19:55)
[2023-05-20] MEDS: guaiFENesin ER 600 MG TAB PO SCH ×2 (08:29→19:58)
[2023-05-20] MEDS: amLODIPine 5 MG TAB PO SCH (08:29)
[2023-05-20] MEDS: LR 1,000 ML IV SCH ×2 (08:33→23:16)
[2023-05-20] MEDS ORDERED: LIDOCAINE 5% (LIDODERM) PATCH TD SCH (09:00)
[2023-05-20 12:44] LABS: HEMATOCRIT 38.5 % (36.0-47.0); HEMOGLOBIN 12.1 g/dl (12.0-15.5)
[2023-05-20] MEDS: SIMVASTATIN 20 MG TAB PO SCH (19:58)
[2023-05-21] VITALS (20 sets, daily range): BP systolic 83–120; BP diastolic 48–76; TEMP 97.5–98.1; O2SAT 90–97
[2023-05-21] MEDS: PERCOCET 5MG/325MG TAB PO PRN ×4 (03:28→22:37)
[2023-05-21] MEDS: ACETAMINOPHEN TAB 650MG DOSE (2X325MG) PO SCH ×4 (05:24→23:24)
[2023-05-21] MEDS: LEVOTHYROXINE 150MCG TABLET (0.15MG) PO SCH (05:25)
[2023-05-21] MEDS: AMPICILLIN SOD/SULBACTAM SOD 3 GM in D5W MINI-BAG PLUS 100 ML IV SCH ×4 (05:25→23:24)
[2023-05-21 05:51] LABS: BASO % 0.3 % (0.0-1.0); EOS # 0.8 10^3/uL (0.0-0.5); EOS % 6.9 % (0.0-3.0); HEMATOCRIT 30.9 % (36.0-47.0); LYMPH # 0.8 10^3/uL (1.5-5.0); LYMPH % 6.9 % (24.0-44.0); MEAN CORPUSCULAR HEMOGLOBIN 28.8 pg (27.0-33.0); MEAN CORPUSCULAR HGB CONC 31.7 g/dl (32.0-36.5); MEAN CORPUSCULAR VOLUME 90.9 fl (80.0-96.0); MONO # 1.2 10^3/uL (0.0-0.8); MONO % 10.4 % (2.0-8.0); NEUTROPHILS # 8.6 10^3/uL (1.5-8.5); NEUTROPHILS % 74.1 % (36.0-66.0); PLATELET COUNT, AUTOMATED 306 10^3/uL (150-450); WHITE BLOOD COUNT 11.5 10^3/uL (4.0-10.0)
[2023-05-21 05:59] LABS: HEMOGLOBIN 9.8 g/dl (12.0-15.5)
[2023-05-21 06:13] LABS: BLOOD UREA NITROGEN 28 MG/DL (9-23); CALCIUM LEVEL 7.7 MG/DL (8.3-10.6); CARBON DIOXIDE LEVEL 34 MMOL/L (20-31); CHLORIDE LEVEL 103 MMOL/L (98-107); CREATININE FOR GFR 0.77 MG/DL (0.55-1.30); GLOMERULAR FILTRATION RATE > 60.0 (>39); GLUCOSE, FASTING 92 MG/DL (74-106); POTASSIUM SERUM 3.5 MMOL/L (3.5-5.1); SODIUM LEVEL 142 MMOL/L (136-145)
[2023-05-21] MEDS: ADVAIR HFA 115/21MCG INHALER INH SCH ×2 (07:06→20:18)
[2023-05-21] MEDS: METOCLOPRAMIDE INJ 10MG/2ML VIAL IV SCH ×2 (08:33→15:38)
[2023-05-21] MEDS: DICLOFENAC EPOLAMINE 1.3% PATCH TOP SCH ×2 (08:33→19:33)
[2023-05-21] MEDS: PANTOPRAZOLE 40MG VIAL IV SCH (08:33)
[2023-05-21] MEDS: **hydrALAZINE** 50 MG TAB PO SCH (08:34)
[2023-05-21] MEDS: guaiFENesin ER 600 MG TAB PO SCH ×2 (08:34→19:33)
[2023-05-21] MEDS: METOPROLOL TART 25 MG TABLET PO SCH (08:34)
[2023-05-21] MEDS: BISACODYL 10MG SUPP PR SCH (08:35)
[2023-05-21] MEDS: amLODIPine 5 MG TAB PO SCH (08:35)
[2023-05-21] MEDS: SERTRALINE 100 MG TAB PO SCH (08:35)
[2023-05-21 09:10] LABS: CHLAMYDIA PNEUMONIAE IgM <1:10 (< 1:10); CHLAMYDIA PSITTACI IgG <1:100 (< 1:100); CHLAMYDIA PSITTACI IgM <1:10 (< 1:10); CHLAMYDIA TRACHOMATIS IgG <1:100 (< 1:100); CHLAMYDIA TRACHOMATIS IgM <1:10 (< 1:10)
[2023-05-21] MEDS ORDERED: LR 500 ML IV ONE ×2 (11:05→14:55)
[2023-05-21] MEDS ORDERED: DOCUSATE SODIUM 100MG CAPSULE PO PRN (11:20)
[2023-05-21 11:26] LABS: HEMATOCRIT 33.4 % (36.0-47.0); HEMOGLOBIN 10.6 g/dl (12.0-15.5)
[2023-05-21] MEDS: MIRALAX *UNIT DOSE* 17GM PACKET PO SCH (11:36)
[2023-05-21] MEDS ORDERED: methylPREDNISolone 125MG 2ML VIAL IV ONE (15:00)
[2023-05-21] MEDS ORDERED: diphenhydrAMINE 50MG/ML VIAL IV ONE (15:00)
[2023-05-21 15:27] LABS: HEMATOCRIT 33.8 % (36.0-47.0); HEMOGLOBIN 10.6 g/dl (12.0-15.5); MEAN CORPUSCULAR HGB CONC 31.4 g/dl (32.0-36.5); MEAN CORPUSCULAR VOLUME 92.3 fl (80.0-96.0); PLATELET COUNT, AUTOMATED 346 10^3/uL (150-450); RED BLOOD COUNT 3.66 10^6/uL (4.00-5.40); WHITE BLOOD COUNT 13.2 10^3/uL (4.0-10.0)
[2023-05-21] MEDS ORDERED: ISOVUE-370 76% 100ML VIAL As Ordered ONE (16:00)
[2023-05-21] MEDS ORDERED: METOCLOPRAMIDE INJ 10MG/2ML VIAL IV PRN (18:50)
[2023-05-21] MEDS: SIMVASTATIN 20 MG TAB PO SCH (19:33)
[2023-05-21 20:11] LABS: HEMATOCRIT 41.2 % (36.0-47.0)
[2023-05-21 21:47] LABS: HEMOGLOBIN 12.8 g/dl (12.0-15.5)
[2023-05-22] VITALS (20 sets, daily range): BP systolic 113–121; BP diastolic 71–87; TEMP 97.3–98.6; O2SAT 88–96
[2023-05-22] MEDS: AMPICILLIN SOD/SULBACTAM SOD 3 GM in D5W MINI-BAG PLUS 100 ML IV SCH (05:51)
[2023-05-22] MEDS: LEVOTHYROXINE 150MCG TABLET (0.15MG) PO SCH (05:51)
[2023-05-22] MEDS: ACETAMINOPHEN TAB 650MG DOSE (2X325MG) PO SCH ×4 (05:51→23:15)
[2023-05-22 05:54] LABS: BASO % 0.2 % (0.0-1.0); LYMPH # 0.3 10^3/uL (1.5-5.0); LYMPH % 3.3 % (24.0-44.0); MEAN CORPUSCULAR HEMOGLOBIN 28.9 pg (27.0-33.0); MEAN CORPUSCULAR HGB CONC 31.6 g/dl (32.0-36.5); MEAN CORPUSCULAR VOLUME 91.4 fl (80.0-96.0); MONO # 0.2 10^3/uL (0.0-0.8); MONO % 2.7 % (2.0-8.0); NEUTROPHILS # 7.4 10^3/uL (1.5-8.5); NEUTROPHILS % 91.8 % (36.0-66.0); PLATELET COUNT, AUTOMATED 342 10^3/uL (150-450); WHITE BLOOD COUNT 8.1 10^3/uL (4.0-10.0)
[2023-05-22 06:13] LABS: HEMOGLOBIN 10.1 g/dl (12.0-15.5)
[2023-05-22 06:19] LABS: BLOOD UREA NITROGEN 25 MG/DL (9-23); CALCIUM LEVEL 7.5 MG/DL (8.3-10.6); CARBON DIOXIDE LEVEL 30 MMOL/L (20-31); CHLORIDE LEVEL 104 MMOL/L (98-107); CREATININE FOR GFR 0.75 MG/DL (0.55-1.30); GLOMERULAR FILTRATION RATE > 60.0 (>39); GLUCOSE, FASTING 130 MG/DL (74-106); POTASSIUM SERUM 3.9 MMOL/L (3.5-5.1); SODIUM LEVEL 141 MMOL/L (136-145)
[2023-05-22] MEDS: ADVAIR HFA 115/21MCG INHALER INH SCH ×2 (07:14→19:14)
[2023-05-22] MEDS: carisoprodoL 350 MG TAB PO PRN (08:42)
[2023-05-22] MEDS: PERCOCET 5MG/325MG TAB PO PRN ×3 (08:42→19:56)
[2023-05-22] MEDS ORDERED: LIDOCAINE 2% 5ML JELLY UROJET TOP ONE (09:00)
[2023-05-22] MEDS: PANTOPRAZOLE 40MG VIAL IV SCH (10:38)
[2023-05-22] MEDS: guaiFENesin ER 600 MG TAB PO SCH ×2 (10:38→19:56)
[2023-05-22] MEDS: DICLOFENAC EPOLAMINE 1.3% PATCH TOP SCH ×2 (10:39→19:55)
[2023-05-22] MEDS: MIRALAX *UNIT DOSE* 17GM PACKET PO SCH (10:39)
[2023-05-22] MEDS ORDERED: LINEZOLID 600 MG in IV 1 EA IV SCH (11:00)
[2023-05-22 12:09] LABS: HEMATOCRIT 34.6 % (36.0-47.0); HEMOGLOBIN 10.8 g/dl (12.0-15.5)
[2023-05-22] MEDS: TIOTROPIUM INHALER/CAPSULE (SPIRIVA) INH SCH (19:16)
[2023-05-22] MEDS: SIMVASTATIN 20 MG TAB PO SCH (19:55)
[2023-05-22] MEDS: LINEZOLID 600MG TABLET (ZYVOX) PO SCH (19:55)
[2023-05-22] MEDS: HEPARIN SOD (PORCINE) 5000UNITS/ML 1ML VIAL/SYRINGE SQ SCH (21:13)
[2023-05-23] VITALS (16 sets, daily range): BP systolic 107–137; BP diastolic 62–85; TEMP 97–98.4; O2SAT 92–98
[2023-05-23] MEDS: PERCOCET 5MG/325MG TAB PO PRN ×3 (00:07→20:06)
[2023-05-23] MEDS: carisoprodoL 350 MG TAB PO PRN (02:02)
[2023-05-23] MEDS: ACETAMINOPHEN TAB 650MG DOSE (2X325MG) PO SCH ×4 (05:36→23:29)
[2023-05-23] MEDS: LEVOTHYROXINE 150MCG TABLET (0.15MG) PO SCH (05:36)
[2023-05-23] MEDS: HEPARIN SOD (PORCINE) 5000UNITS/ML 1ML VIAL/SYRINGE SQ SCH ×3 (05:37→20:09)
[2023-05-23 05:41] LABS: BASO % 0.2 % (0.0-1.0); EOS # 0.6 10^3/uL (0.0-0.5); EOS % 5.2 % (0.0-3.0); HEMATOCRIT 35.2 % (36.0-47.0); MEAN CORPUSCULAR HEMOGLOBIN 29.2 pg (27.0-33.0); MEAN CORPUSCULAR HGB CONC 31.3 g/dl (32.0-36.5); MEAN CORPUSCULAR VOLUME 93.4 fl (80.0-96.0); MONO # 1.4 10^3/uL (0.0-0.8); MONO % 12.1 % (2.0-8.0); NEUTROPHILS # 8.2 10^3/uL (1.5-8.5); NEUTROPHILS % 72.4 % (36.0-66.0); PLATELET COUNT, AUTOMATED 419 10^3/uL (150-450); RED BLOOD COUNT 3.77 10^6/uL (4.00-5.40); WHITE BLOOD COUNT 11.3 10^3/uL (4.0-10.0)
[2023-05-23 06:16] LABS: CALCIUM LEVEL 8.2 MG/DL (8.3-10.6); CREATININE FOR GFR 1.02 MG/DL (0.55-1.30); GLOMERULAR FILTRATION RATE 56.2 (>39); POTASSIUM SERUM 3.8 MMOL/L (3.5-5.1)
[2023-05-23] MEDS: ADVAIR HFA 115/21MCG INHALER INH SCH ×2 (07:46→19:26)
[2023-05-23] MEDS: TIOTROPIUM INHALER/CAPSULE (SPIRIVA) INH SCH (07:46)
[2023-05-23] MEDS: PANTOPRAZOLE 40MG VIAL IV SCH (08:49)
[2023-05-23] MEDS: MIRALAX *UNIT DOSE* 17GM PACKET PO SCH (08:50)
[2023-05-23] MEDS: DICLOFENAC EPOLAMINE 1.3% PATCH TOP SCH ×2 (08:50→21:43)
[2023-05-23] MEDS: guaiFENesin ER 600 MG TAB PO SCH ×2 (08:50→20:06)
[2023-05-23] MEDS: LINEZOLID 600MG TABLET (ZYVOX) PO SCH ×2 (08:50→20:07)
[2023-05-23] MEDS: METOPROLOL TART 12.5 MG PER 1/2 TAB PO SCH ×2 (12:03→20:07)
[2023-05-23] MEDS: CALCIUM CARBONATE 500 MG CHEW U/D PO PRN (14:30)
[2023-05-23] MEDS: SIMVASTATIN 20 MG TAB PO SCH (20:07)
[2023-05-24] VITALS (16 sets, daily range): BP systolic 95–135; BP diastolic 60–86; TEMP 97.7–97.9; O2SAT 85–97
[2023-05-24] MEDS ORDERED: RAMELTEON 8 MG TAB (ROZEREM) PO PRN (01:50)
[2023-05-24] MEDS: ACETAMINOPHEN TAB 650MG DOSE (2X325MG) PO SCH ×3 (05:13→17:17)
[2023-05-24] MEDS: LEVOTHYROXINE 150MCG TABLET (0.15MG) PO SCH (05:13)
[2023-05-24] MEDS: HEPARIN SOD (PORCINE) 5000UNITS/ML 1ML VIAL/SYRINGE SQ SCH ×3 (05:14→20:53)
[2023-05-24] MEDS: ONDANSETRON 4MG 2ML VIAL IV PRN (05:57)
[2023-05-24] MEDS: PERCOCET 5MG/325MG TAB PO PRN ×3 (06:11→20:54)
[2023-05-24] MEDS: TIOTROPIUM INHALER/CAPSULE (SPIRIVA) INH SCH (06:59)
[2023-05-24] MEDS: ADVAIR HFA 115/21MCG INHALER INH SCH ×2 (06:59→19:53)
[2023-05-24 07:06] LABS: BASO # 0.1 10^3/uL (0.0-0.2); BASO % 0.4 % (0.0-1.0); EOS # 0.7 10^3/uL (0.0-0.5); EOS % 4.7 % (0.0-3.0); HEMATOCRIT 34.6 % (36.0-47.0); LYMPH # 0.9 10^3/uL (1.5-5.0); LYMPH % 5.9 % (24.0-44.0); MEAN CORPUSCULAR HEMOGLOBIN 29.8 pg (27.0-33.0); MEAN CORPUSCULAR HGB CONC 31.8 g/dl (32.0-36.5); MEAN CORPUSCULAR VOLUME 93.8 fl (80.0-96.0); MONO # 1.4 10^3/uL (0.0-0.8); MONO % 9.6 % (2.0-8.0); NEUTROPHILS # 11.3 10^3/uL (1.5-8.5); NEUTROPHILS % 78.7 % (36.0-66.0); PLATELET COUNT, AUTOMATED 440 10^3/uL (150-450); RED BLOOD COUNT 3.69 10^6/uL (4.00-5.40); WHITE BLOOD COUNT 14.4 10^3/uL (4.0-10.0)
[2023-05-24 07:19] LABS: CALCIUM LEVEL 8.6 MG/DL (8.3-10.6); CREATININE FOR GFR 0.99 MG/DL (0.55-1.30); GLOMERULAR FILTRATION RATE 58.2 (>39); POTASSIUM SERUM 4.1 MMOL/L (3.5-5.1)
[2023-05-24] MEDS: MIRALAX *UNIT DOSE* 17GM PACKET PO SCH (08:47)
[2023-05-24] MEDS: PANTOPRAZOLE 40MG VIAL IV SCH (08:47)
[2023-05-24] MEDS: METOPROLOL TART 12.5 MG PER 1/2 TAB PO SCH ×2 (08:47→20:53)
[2023-05-24] MEDS: LINEZOLID 600MG TABLET (ZYVOX) PO SCH ×2 (08:48→20:53)
[2023-05-24] MEDS: guaiFENesin ER 600 MG TAB PO SCH ×2 (08:48→20:53)
[2023-05-24] MEDS: DICLOFENAC EPOLAMINE 1.3% PATCH TOP SCH ×2 (08:49→20:51)
[2023-05-24] MEDS ORDERED: LIDOCAINE 2% 5ML JELLY UROJET TOP PRN (20:15)
[2023-05-24] MEDS: SIMVASTATIN 20 MG TAB PO SCH (20:54)
[2023-05-25] MEDS: ACETAMINOPHEN TAB 650MG DOSE (2X325MG) PO SCH ×4 (00:18→17:55)
[2023-05-25 02:00] VITALS: BP 104/61; TEMP 97.7; O2SAT 100
[2023-05-25] MEDS: PERCOCET 5MG/325MG TAB PO PRN ×2 (04:09→21:29)
[2023-05-25 05:12] VITALS: BP 100/59; TEMP 97.9; O2SAT 96
[2023-05-25] MEDS: LEVOTHYROXINE 150MCG TABLET (0.15MG) PO SCH (05:17)
[2023-05-25] MEDS: HEPARIN SOD (PORCINE) 5000UNITS/ML 1ML VIAL/SYRINGE SQ SCH ×3 (05:19→21:31)
[2023-05-25 06:15] LABS: BASO % 0.3 % (0.0-1.0); EOS # 0.6 10^3/uL (0.0-0.5); EOS % 3.8 % (0.0-3.0); HEMATOCRIT 32.7 % (36.0-47.0); HEMOGLOBIN 10.1 g/dl (12.0-15.5); LYMPH # 0.7 10^3/uL (1.5-5.0); LYMPH % 4.6 % (24.0-44.0); MEAN CORPUSCULAR HEMOGLOBIN 29.5 pg (27.0-33.0); MEAN CORPUSCULAR HGB CONC 30.9 g/dl (32.0-36.5); MEAN CORPUSCULAR VOLUME 95.6 fl (80.0-96.0); MONO # 1.1 10^3/uL (0.0-0.8); MONO % 7.7 % (2.0-8.0); NEUTROPHILS # 12.1 10^3/uL (1.5-8.5); NEUTROPHILS % 82.8 % (36.0-66.0); PLATELET COUNT, AUTOMATED 412 10^3/uL (150-450); RED BLOOD COUNT 3.42 10^6/uL (4.00-5.40); WHITE BLOOD COUNT 14.6 10^3/uL (4.0-10.0)
[2023-05-25 06:39] LABS: CALCIUM LEVEL 8.5 MG/DL (8.3-10.6); CREATININE FOR GFR 1.09 MG/DL (0.55-1.30); GLOMERULAR FILTRATION RATE 52.1 (>39); POTASSIUM SERUM 3.9 MMOL/L (3.5-5.1)
[2023-05-25] MEDS: TIOTROPIUM INHALER/CAPSULE (SPIRIVA) INH SCH (07:56)
[2023-05-25] MEDS: ADVAIR HFA 115/21MCG INHALER INH SCH ×2 (07:56→20:56)
[2023-05-25] MEDS: PANTOPRAZOLE 40MG VIAL IV SCH (08:23)
[2023-05-25] MEDS: MIRALAX *UNIT DOSE* 17GM PACKET PO SCH (08:23)
[2023-05-25] MEDS: METOPROLOL TART 12.5 MG PER 1/2 TAB PO SCH ×2 (08:23→21:28)
[2023-05-25] MEDS: DICLOFENAC EPOLAMINE 1.3% PATCH TOP SCH ×2 (08:24→21:31)
[2023-05-25] MEDS: guaiFENesin ER 600 MG TAB PO SCH ×2 (08:24→21:29)
[2023-05-25] MEDS: LINEZOLID 600MG TABLET (ZYVOX) PO SCH ×2 (08:24→21:27)
[2023-05-25 09:00] VITALS: O2SAT 89
[2023-05-25] MEDS ORDERED: NS 500 ML IV ONE (11:45)
[2023-05-25 14:00] VITALS: BP 98/60; TEMP 97.9; O2SAT 97
[2023-05-25 15:38] VITALS: BP 104/65; O2SAT 95
[2023-05-25] MEDS: SIMVASTATIN 20 MG TAB PO SCH (21:29)
[2023-05-25 21:50] VITALS: BP 104/65; TEMP 97.9; O2SAT 89
[2023-05-26] MEDS: ACETAMINOPHEN TAB 650MG DOSE (2X325MG) PO SCH ×4 (00:10→18:12)
[2023-05-26] MEDS: PERCOCET 5MG/325MG TAB PO PRN ×4 (04:35→20:42)
[2023-05-26] MEDS: HEPARIN SOD (PORCINE) 5000UNITS/ML 1ML VIAL/SYRINGE SQ SCH ×3 (05:22→21:54)
[2023-05-26] MEDS: LEVOTHYROXINE 150MCG TABLET (0.15MG) PO SCH (05:22)
[2023-05-26 05:23] VITALS: BP 106/64; TEMP 97.7; O2SAT 90
[2023-05-26 06:30] LABS: BASO # 0.1 10^3/uL (0.0-0.2); BASO % 0.5 % (0.0-1.0); EOS # 0.6 10^3/uL (0.0-0.5); EOS % 5.3 % (0.0-3.0); HEMATOCRIT 36.8 % (36.0-47.0); HEMOGLOBIN 11.3 g/dl (12.0-15.5); LYMPH # 0.8 10^3/uL (1.5-5.0); LYMPH % 6.6 % (24.0-44.0); MEAN CORPUSCULAR HEMOGLOBIN 29.3 pg (27.0-33.0); MEAN CORPUSCULAR HGB CONC 30.7 g/dl (32.0-36.5); MEAN CORPUSCULAR VOLUME 95.3 fl (80.0-96.0); MONO # 0.9 10^3/uL (0.0-0.8); MONO % 7.4 % (2.0-8.0); NEUTROPHILS # 9.2 10^3/uL (1.5-8.5); NEUTROPHILS % 79.6 % (36.0-66.0); PLATELET COUNT, AUTOMATED 436 10^3/uL (150-450); RED BLOOD COUNT 3.86 10^6/uL (4.00-5.40); WHITE BLOOD COUNT 11.5 10^3/uL (4.0-10.0)
[2023-05-26 06:58] LABS: CALCIUM LEVEL 8.5 MG/DL (8.3-10.6); CREATININE FOR GFR 1.05 MG/DL (0.55-1.30); GLOMERULAR FILTRATION RATE 54.4 (>39); POTASSIUM SERUM 4.1 MMOL/L (3.5-5.1)
[2023-05-26] MEDS: TIOTROPIUM INHALER/CAPSULE (SPIRIVA) INH SCH (07:48)
[2023-05-26] MEDS: ADVAIR HFA 115/21MCG INHALER INH SCH ×2 (07:48→19:33)
[2023-05-26] MEDS: METOPROLOL TART 12.5 MG PER 1/2 TAB PO SCH ×2 (09:00→20:41)
[2023-05-26] MEDS: MIRALAX *UNIT DOSE* 17GM PACKET PO SCH (09:00)
[2023-05-26] MEDS: DICLOFENAC EPOLAMINE 1.3% PATCH TOP SCH ×2 (09:01→20:42)
[2023-05-26] MEDS: PANTOPRAZOLE 40MG VIAL IV SCH (09:01)
[2023-05-26] MEDS: guaiFENesin ER 600 MG TAB PO SCH ×2 (09:01→20:41)
[2023-05-26] MEDS: LINEZOLID 600MG TABLET (ZYVOX) PO SCH ×2 (09:07→21:53)
[2023-05-26 14:00] VITALS: BP 104/64; TEMP 97.7; O2SAT 93
[2023-05-26 20:40] VITALS: BP 103/64; TEMP 97.5; O2SAT 90
[2023-05-26] MEDS: SIMVASTATIN 20 MG TAB PO SCH (20:42)
[2023-05-27] MEDS: ACETAMINOPHEN TAB 650MG DOSE (2X325MG) PO SCH ×4 (00:19→17:17)
[2023-05-27] MEDS: HEPARIN SOD (PORCINE) 5000UNITS/ML 1ML VIAL/SYRINGE SQ SCH ×3 (06:07→21:04)
[2023-05-27] MEDS: LEVOTHYROXINE 150MCG TABLET (0.15MG) PO SCH (06:07)
[2023-05-27 06:11] VITALS: BP 128/71; TEMP 97.9; O2SAT 90
[2023-05-27 06:13] LABS: BASO # 0.1 10^3/uL (0.0-0.2); BASO % 0.7 % (0.0-1.0); EOS # 0.5 10^3/uL (0.0-0.5); EOS % 4.9 % (0.0-3.0); HEMOGLOBIN 9.8 g/dl (12.0-15.5); LYMPH # 0.6 10^3/uL (1.5-5.0); LYMPH % 5.5 % (24.0-44.0); MEAN CORPUSCULAR HGB CONC 30.6 g/dl (32.0-36.5); MEAN CORPUSCULAR VOLUME 94.7 fl (80.0-96.0); MONO # 0.8 10^3/uL (0.0-0.8); MONO % 8.3 % (2.0-8.0); NEUTROPHILS # 8.1 10^3/uL (1.5-8.5); PLATELET COUNT, AUTOMATED 462 10^3/uL (150-450); RED BLOOD COUNT 3.38 10^6/uL (4.00-5.40); WHITE BLOOD COUNT 10.2 10^3/uL (4.0-10.0)
[2023-05-27] MEDS: PERCOCET 5MG/325MG TAB PO PRN ×3 (06:35→17:18)
[2023-05-27] MEDS: TIOTROPIUM INHALER/CAPSULE (SPIRIVA) INH SCH (07:10)
[2023-05-27] MEDS: ADVAIR HFA 115/21MCG INHALER INH SCH ×2 (07:11→19:31)
[2023-05-27] MEDS: DICLOFENAC EPOLAMINE 1.3% PATCH TOP SCH ×2 (08:40→21:10)
[2023-05-27] MEDS: MIRALAX *UNIT DOSE* 17GM PACKET PO SCH (08:41)
[2023-05-27] MEDS: PANTOPRAZOLE 40MG VIAL IV SCH (08:41)
[2023-05-27] MEDS: guaiFENesin ER 600 MG TAB PO SCH ×2 (08:41→21:05)
[2023-05-27] MEDS: METOPROLOL TART 12.5 MG PER 1/2 TAB PO SCH ×2 (08:42→21:04)
[2023-05-27 14:00] VITALS: BP 122/77; TEMP 97.7; O2SAT 93
[2023-05-27] MEDS ORDERED: BETHANECHOL 10 MG TAB PO ONE (17:00)
[2023-05-27 20:30] VITALS: BP 126/79; TEMP 97.9; O2SAT 95
[2023-05-27] MEDS: SIMVASTATIN 20 MG TAB PO SCH (21:05)
[2023-05-28] MEDS: ONDANSETRON 4MG 2ML VIAL IV PRN (00:54)
[2023-05-28] MEDS: LR 1,000 ML IV SCH ×2 (01:16→17:02)
[2023-05-28 05:10] VITALS: BP 116/75; TEMP 98.8; O2SAT 90
[2023-05-28] MEDS: ACETAMINOPHEN TAB 650MG DOSE (2X325MG) PO SCH ×5 (05:15→23:14)
[2023-05-28] MEDS: LEVOTHYROXINE 150MCG TABLET (0.15MG) PO SCH (05:15)
[2023-05-28] MEDS: HEPARIN SOD (PORCINE) 5000UNITS/ML 1ML VIAL/SYRINGE SQ SCH ×3 (05:15→21:09)
[2023-05-28] MEDS: ADVAIR HFA 115/21MCG INHALER INH SCH ×2 (07:49→20:32)
[2023-05-28] MEDS: TIOTROPIUM INHALER/CAPSULE (SPIRIVA) INH SCH (07:49)
[2023-05-28 07:54] LABS: BASO # 0.1 10^3/uL (0.0-0.2); BASO % 0.6 % (0.0-1.0); EOS # 0.3 10^3/uL (0.0-0.5); EOS % 2.3 % (0.0-3.0); HEMATOCRIT 31.8 % (36.0-47.0); HEMOGLOBIN 9.8 g/dl (12.0-15.5); LYMPH # 0.5 10^3/uL (1.5-5.0); LYMPH % 3.5 % (24.0-44.0); MEAN CORPUSCULAR HEMOGLOBIN 29.5 pg (27.0-33.0); MEAN CORPUSCULAR HGB CONC 30.8 g/dl (32.0-36.5); MEAN CORPUSCULAR VOLUME 95.8 fl (80.0-96.0); MONO # 0.9 10^3/uL (0.0-0.8); MONO % 6.2 % (2.0-8.0); NEUTROPHILS # 12.5 10^3/uL (1.5-8.5); NEUTROPHILS % 86.6 % (36.0-66.0); PLATELET COUNT, AUTOMATED 408 10^3/uL (150-450); RED BLOOD COUNT 3.32 10^6/uL (4.00-5.40); WHITE BLOOD COUNT 14.5 10^3/uL (4.0-10.0)
[2023-05-28 08:22] LABS: CALCIUM LEVEL 8.2 MG/DL (8.3-10.6); CREATININE FOR GFR 0.98 MG/DL (0.55-1.30); GLOMERULAR FILTRATION RATE 58.9 (>39); MAGNESIUM LEVEL 1.6 MG/DL (1.8-2.4)
[2023-05-28] MEDS: MIRALAX *UNIT DOSE* 17GM PACKET PO SCH (10:11)
[2023-05-28] MEDS: guaiFENesin ER 600 MG TAB PO SCH ×2 (10:11→20:27)
[2023-05-28] MEDS: PANTOPRAZOLE 40MG VIAL IV SCH (10:12)
[2023-05-28] MEDS: DICLOFENAC EPOLAMINE 1.3% PATCH TOP SCH ×2 (10:12→20:27)
[2023-05-28] MEDS: METOPROLOL TART 12.5 MG PER 1/2 TAB PO SCH ×2 (10:13→20:20)
[2023-05-28] MEDS: PERCOCET 5MG/325MG TAB PO PRN (10:18)
[2023-05-28] MEDS: MAG SULF 1GM/100ML (MAG RUN) 1 GM in IV 1 EA IV SCH ×2 (11:21→12:32)
[2023-05-28] MEDS ORDERED: MORPHINE 2 MG/ML 1ML VIAL IV PRN (14:50)
[2023-05-28] MEDS: SERTRALINE 100 MG TAB PO SCH (15:46)
[2023-05-28 16:00] VITALS: BP 107/72; TEMP 97.3; O2SAT 93
[2023-05-28] MEDS: SIMVASTATIN 20 MG TAB PO SCH (20:27)
[2023-05-28 20:30] VITALS: BP 105/71; TEMP 97.9; O2SAT 75
[2023-05-28 20:48] VITALS: O2SAT 75
[2023-05-28 20:51] VITALS: O2SAT 92
[2023-05-29] VITALS (8 sets, daily range): BP systolic 121–127; BP diastolic 77–88; TEMP 97.9–98.1; O2SAT 84–100
[2023-05-29] MEDS: LEVOTHYROXINE 150MCG TABLET (0.15MG) PO SCH (05:17)
[2023-05-29] MEDS: HEPARIN SOD (PORCINE) 5000UNITS/ML 1ML VIAL/SYRINGE SQ SCH ×3 (05:17→20:40)
[2023-05-29] MEDS: ACETAMINOPHEN TAB 650MG DOSE (2X325MG) PO SCH ×3 (05:17→17:16)
[2023-05-29 05:42] LABS: BASO # 0.1 10^3/uL (0.0-0.2); BASO % 0.7 % (0.0-1.0); EOS # 0.4 10^3/uL (0.0-0.5); EOS % 4.9 % (0.0-3.0); HEMATOCRIT 33.1 % (36.0-47.0); LYMPH # 0.8 10^3/uL (1.5-5.0); LYMPH % 9.2 % (24.0-44.0); MEAN CORPUSCULAR HEMOGLOBIN 29.7 pg (27.0-33.0); MEAN CORPUSCULAR HGB CONC 30.2 g/dl (32.0-36.5); MEAN CORPUSCULAR VOLUME 98.2 fl (80.0-96.0); MONO # 0.6 10^3/uL (0.0-0.8); NEUTROPHILS # 6.7 10^3/uL (1.5-8.5); PLATELET COUNT, AUTOMATED 374 10^3/uL (150-450); RED BLOOD COUNT 3.37 10^6/uL (4.00-5.40); WHITE BLOOD COUNT 8.6 10^3/uL (4.0-10.0)
[2023-05-29] MEDS ORDERED: LR 1,000 ML IV SCH (06:05)
[2023-05-29 06:07] LABS: BLOOD UREA NITROGEN 26 MG/DL (9-23); CALCIUM LEVEL 7.8 MG/DL (8.3-10.6); CARBON DIOXIDE LEVEL 28 MMOL/L (20-31); CHLORIDE LEVEL 107 MMOL/L (98-107); CREATININE FOR GFR 0.92 MG/DL (0.55-1.30); GLOMERULAR FILTRATION RATE > 60.0 (>39); GLUCOSE, FASTING 86 MG/DL (74-106); POTASSIUM SERUM 4.1 MMOL/L (3.5-5.1); SODIUM LEVEL 143 MMOL/L (136-145)
[2023-05-29] MEDS: TIOTROPIUM INHALER/CAPSULE (SPIRIVA) INH SCH (07:23)
[2023-05-29] MEDS: ADVAIR HFA 115/21MCG INHALER INH SCH ×2 (07:23→19:16)
[2023-05-29] MEDS: SERTRALINE 100 MG TAB PO SCH (09:45)
[2023-05-29] MEDS: PANTOPRAZOLE 40MG VIAL IV SCH (09:45)
[2023-05-29] MEDS: guaiFENesin ER 600 MG TAB PO SCH ×2 (09:45→20:01)
[2023-05-29] MEDS: MIRALAX *UNIT DOSE* 17GM PACKET PO SCH (09:45)
[2023-05-29] MEDS: DICLOFENAC EPOLAMINE 1.3% PATCH TOP SCH ×2 (09:46→19:59)
[2023-05-29] MEDS: METOPROLOL TART 12.5 MG PER 1/2 TAB PO SCH ×2 (09:48→20:00)
[2023-05-29 16:21] LABS: IRON (FE) 94 UG/DL (50-170); PERCENT SATURATION 34.1 % (13.2-45.0); TOTAL IRON BINDING CAPACITY 276 UG/DL (250-425)
[2023-05-29 16:24] LABS: FERRITIN 259.4 NG/ML (7.3-270.7); FOLATE 15.6 NG/ML (>5.4); VITAMIN B12 LEVEL 295 PG/ML (211-911)
[2023-05-29] MEDS: PERCOCET 5MG/325MG TAB PO PRN (20:01)
[2023-05-29] MEDS: SIMVASTATIN 20 MG TAB PO SCH (20:01)
[2023-05-30 00:15] VITALS: O2SAT 83
[2023-05-30 00:30] VITALS: O2SAT 96
[2023-05-30] MEDS: ACETAMINOPHEN TAB 650MG DOSE (2X325MG) PO SCH ×3 (01:13→13:07)
[2023-05-30] MEDS: LEVOTHYROXINE 150MCG TABLET (0.15MG) PO SCH (05:18)
[2023-05-30] MEDS: HEPARIN SOD (PORCINE) 5000UNITS/ML 1ML VIAL/SYRINGE SQ SCH (05:19)
[2023-05-30 05:21] VITALS: BP 132/87; TEMP 98.2; O2SAT 91
[2023-05-30 05:49] LABS: BASO # 0.1 10^3/uL (0.0-0.2); BASO % 0.8 % (0.0-1.0); EOS # 0.5 10^3/uL (0.0-0.5); EOS % 4.9 % (0.0-3.0); HEMATOCRIT 29.2 % (36.0-47.0); HEMOGLOBIN 8.9 g/dl (12.0-15.5); LYMPH # 0.7 10^3/uL (1.5-5.0); LYMPH % 7.9 % (24.0-44.0); MEAN CORPUSCULAR HEMOGLOBIN 29.7 pg (27.0-33.0); MEAN CORPUSCULAR HGB CONC 30.5 g/dl (32.0-36.5); MEAN CORPUSCULAR VOLUME 97.3 fl (80.0-96.0); MONO # 0.8 10^3/uL (0.0-0.8); MONO % 8.4 % (2.0-8.0); NEUTROPHILS # 7.2 10^3/uL (1.5-8.5); NEUTROPHILS % 77.7 % (36.0-66.0); PLATELET COUNT, AUTOMATED 292 10^3/uL (150-450); WHITE BLOOD COUNT 9.2 10^3/uL (4.0-10.0)
[2023-05-30 06:14] LABS: BLOOD UREA NITROGEN 24 MG/DL (9-23); CALCIUM LEVEL 7.7 MG/DL (8.3-10.6); CARBON DIOXIDE LEVEL 27 MMOL/L (20-31); CHLORIDE LEVEL 109 MMOL/L (98-107); CREATININE FOR GFR 0.76 MG/DL (0.55-1.30); GLOMERULAR FILTRATION RATE > 60.0 (>39); GLUCOSE, FASTING 90 MG/DL (74-106); SODIUM LEVEL 143 MMOL/L (136-145)
[2023-05-30] MEDS: ADVAIR HFA 115/21MCG INHALER INH SCH (07:10)
[2023-05-30] MEDS: TIOTROPIUM INHALER/CAPSULE (SPIRIVA) INH SCH (07:10)
[2023-05-30] MEDS: MIRALAX *UNIT DOSE* 17GM PACKET PO SCH (09:00)
[2023-05-30] MEDS ORDERED: PANTOPRAZOLE 40MG TAB (PROTONIX) PO SCH (09:00)
[2023-05-30 09:19] VITALS: BP 131/83; O2SAT 89
[2023-05-30] MEDS: PERCOCET 5MG/325MG TAB PO PRN (09:19)
[2023-05-30] MEDS: guaiFENesin ER 600 MG TAB PO SCH (09:19)
[2023-05-30 09:20] VITALS: BP 131/83
[2023-05-30] MEDS: DICLOFENAC EPOLAMINE 1.3% PATCH TOP SCH (09:20)
[2023-05-30] MEDS: SERTRALINE 100 MG TAB PO SCH (09:20)
[2023-05-30] MEDS: METOPROLOL TART 12.5 MG PER 1/2 TAB PO SCH (09:20)
[2023-05-30 12:14] LABS: HEMATOCRIT 31.6 % (36.0-47.0); HEMOGLOBIN 9.6 g/dl (12.0-15.5)
[2023-05-30] MEDS ORDERED: ACET1TAB55 PO (13:35)
[2023-05-30] MEDS ORDERED: LIDO1PAD TOP (13:35)
[2023-05-30] MEDS ORDERED: ASPI81TA26 PO (13:35)
[2023-05-30] MEDS ORDERED: CARI1TAB7 PO (13:35)
[2023-05-30] MEDS ORDERED: NICO21PAT TD (13:35)
[2023-05-30] MEDS ORDERED: DICL100G10 TOP (13:35)
[2023-05-30] MEDS ORDERED: MIRA1POW3 PO (13:35)
[2023-05-30] MEDS ORDERED: PERCOCET PO (13:35)
[2023-05-30] MEDS ORDERED: METO1TAB87 PO ×2 (13:35→13:37)
== END 2023-05-30 15:55 | disposition home health service (06) | DRG 480 ==
LOC: M ED 20:58 → EDBD 20:58 → M ED INP 05-12 01:51 → EEVIPCON 05-12 01:51 → M MS5PR 05-12 03:10 → M PCU 05-12 10:27 → ENRESERV 05-15 16:05 → M MSPAV 05-15 17:43
PROVIDERS: ADMIT Internal Medicine; ATTEND Student in an Organized Health Care Education/Training Program
PROC: 0QS736Z Reposition Left Upper Femur with Intramedullary Internal Fixation Device, Percutaneous Approach (ICD-10-PCS; principal; 2023-05-14 11:00)
PROC: 30233N1 Transfusion of Nonautologous Red Blood Cells into Peripheral Vein, Percutaneous Approach (ICD-10-PCS; 2023-05-19)
DX: S72.142A Displaced intertrochanteric fracture of left femur, initial encounter for closed fracture (principal); J96.21 Acute and chronic respiratory failure with hypoxia; J44.1 Chronic obstructive pulmonary disease with (acute) exacerbation; J44.0 Chronic obstructive pulmonary disease with (acute) lower respiratory infection; K56.7 Ileus, unspecified; N39.0 Urinary tract infection, site not specified; J98.11 Atelectasis; D62 Acute posthemorrhagic anemia; W18.30XA Fall on same level, unspecified, initial encounter; Y92.011 Dining room of single-family (private) house as the place of occurrence of the external cause; Y93.89 Activity, other specified; Y99.8 Other external cause status; F03.90 Unspecified dementia, unspecified severity, without behavioral disturbance, psychotic disturbance, mood disturbance, and anxiety; I25.10 Atherosclerotic heart disease of native coronary artery without angina pectoris; Z90.2 Acquired absence of lung [part of]; Z86.73 Personal history of transient ischemic attack (TIA), and cerebral infarction without residual deficits; I10 Essential (primary) hypertension; K21.9 Gastro-esophageal reflux disease without esophagitis; F17.200 Nicotine dependence, unspecified, uncomplicated; G89.29 Other chronic pain; F32.A Depression, unspecified; J20.9 Acute bronchitis, unspecified; K59.03 Drug induced constipation; T40.2X5A Adverse effect of other opioids, initial encounter; R00.0 Tachycardia, unspecified; R33.9 Retention of urine, unspecified; R60.0 Localized edema; R91.1 Solitary pulmonary nodule; B95.2 Enterococcus as the cause of diseases classified elsewhere; Z85.118 Personal history of other malignant neoplasm of bronchus and lung; Z79.82 Long term (current) use of aspirin; Z79.52 Long term (current) use of systemic steroids; Z79.899 Other long term (current) drug therapy; Z92.21 Personal history of antineoplastic chemotherapy; Z79.890 Hormone replacement therapy; Z88.2 Allergy status to sulfonamides; Z91.018 Allergy to other foods; Z91.041 Radiographic dye allergy status; Z92.3 Personal history of irradiation

== ENCOUNTER → 2023-06-04 | Outpatient (CLI) | payer OTHER ==
[~2023-06-04] MED LIST changes: +ACET1TAB55 PO; +CARI1TAB7 PO; +DICL100G10 TOP; +ERGO500029 PO; +HYDR100T PO; +LEVO150T7 PO; +LIDO1PAD TOP; +LISI20TA33 PO; +METO1TAB87 PO; +MIRA1POW3 PO; +NICO21PAT TD; +PANT40TA29 PO; +PERCOCET PO; +SIMV20TA22 PO; +ZOLO100T PO
== END ==
LOC: M SOG 08:56
PROVIDERS: ATTEND Orthopaedic Surgery
DX: Z53.9 Procedure and treatment not carried out, unspecified reason (principal)